=== PATIENT | male | born 1950 | race Caucasian/White ===

== ENCOUNTER 2018-04-29 13:49 | Emergency (ER) | payer MEDICARE, BC ==
[2018-04-29] MEDS ORDERED: Alum Hydrox/Mag Hydrox/Simeth 30 ML, Lidocaine 2% 15 ML PO ONE ×2 (14:05)
--- NOTE | 2018-04-29 14:39 | EDM.PDOC ---
ED HPI GENERAL MEDICAL PROBLEM - General Chief Complaint: Chest Pain Stated Complaint: CHEST PAIN Time Seen by Provider: 04/29/18 13:57 Source of Information: Reports: Patient, Family History Limitations: Reports: No Limitations - History of Present Illness INITIAL COMMENTS - FREE TEXT/NARRATIVE: 67 yo M comes in today with for constant chest pain/tightness x 1 hour with epigastric pain. He has never had anything like this before. The pain does not radiate anywhere else and he denies F/C, diaphoresis, N/V/D, cough, or any other symptoms at this time. He does have a h/o HTN and acid reflux. He states he takes AcipHex at home with relief, but did not take any today. Last endoscopy /colonscopy was "last year". His PCP is Dr. Germain and he went to [facility] for his GI specialist. Chest Pain Score (Numeric/FACES): 6 - Related Data Allergies Allergy/AdvReac Type Severity Reaction Status Date / Time No Known Allergies Allergy Verified 04/29/18 14:01 Home Meds: Home Meds Aspirin [Halfprin] 81 mg PO DAILY 04/29/18 [History] Metoprolol Tartrate 25 mg PO DAILY 04/29/18 [History] Sildenafil [Revatio] 20 mg PO ASDIRECTED 04/29/18 [History] Tamsulosin HCl 0.4 mg PO DAILY 04/29/18 [History] Telmisartan 80 mg PO DAILY 04/29/18 [History] Past Medical History Cardiovascular History: Reports: Hypertension Respiratory History: Reports: Pneumonia, Recurrent, Sleep Apnea Other Respiratory History: wears c-pap Gastrointestinal History: Reports: GERD Musculoskeletal History: Reports: Arthritis, Back Pain, Chronic Oncologic (Cancer) History: Reports: Prostate, Other (See Below) Other Oncologic History: taking organic pills - Past Surgical History HEENT Surgical History: Reports: Naso-Sinus Surgery GI Surgical History: Reports: Colonoscopy, Hernia, Inguinal Musculoskeletal Surgical History: Reports: Other (See Below) Other Musculoskeletal Surgeries/Procedures:: left hip issues and needs a replacement Social & Family History - Tobacco Use Smoking Status *Q: Former Smoker Used Tobacco, but Quit: Yes Month/Year Tobacco Last Used: 13 yrs - Caffeine Use Caffeine Use: Reports: Coffee, Tea - Recreational Drug Use Recreational Drug Use: No ED ROS GENERAL - Review of Systems Review Of Systems: ROS reveals no pertinent complaints other than HPI. ED EXAM, GENERAL - Physical Exam Exam: See Below Exam Limited By: No Limitations General Appearance: Alert, WD/WN, No Apparent Distress Eye Exam: Bilateral Eye: EOMI, Normal Inspection, PERRL Ears: Normal External Exam, Hearing Grossly Normal Nose: Normal Inspection, Normal Mucosa, No Blood Throat/Mouth: Normal Inspection, Normal Lips, Normal Teeth, Normal Gums, Normal Oropharynx, Normal Voice, No Airway Compromise Head: Atraumatic, Normocephalic Neck: Normal Inspection, Supple, Non-Tender, Full Range of Motion Respiratory/Chest: No Respiratory Distress, Lungs Clear, Normal Breath Sounds, No Accessory Muscle Use, Chest Non-Tender Cardiovascular: Normal Peripheral Pulses, Regular Rate, Rhythm, No Edema, No Gallop, No JVD, No Murmur, No Rub Peripheral Pulses: 3+: Posterior Tibial (L), Posterior Tibial (R), Dorsalis Pedis (L), Dorsalis Pedis (R) GI/Abdominal: Normal Bowel Sounds, Soft, Non-Tender, No Organomegaly, No Distention, No Abnormal Bruit, No Mass Psychiatric: Normal Affect, Normal Mood Skin Exam: Warm, Dry, Intact, Normal Color, No Rash EKG INTERPRETATION EKG Date: 04/29/18 Time: 02:08 Rhythm: NSR [place]: LAD-Left [place] Deviation (borderline) P-Wave: Present QRS: Normal ST-T: Normal QT: Normal Course - Vital Signs Last Recorded V/S: Last Vital Signs Temp 97.4 F 04/29/18 15:15 Pulse 68 04/29/18 15:15 Resp 16 04/29/18 15:15 BP 154/93 H 04/29/18 15:15 Pulse Ox 95 04/29/18 15:15 - Orders/Labs/Meds Orders: Active Orders 24 hr Category Date Time Status EKG Documentation Completion [RC] ASDIRECTED Care 04/29/18 14:06 Active EKG 12 Lead [EK] Stat Ther 04/29/18 14:06 Ordered Labs: Laboratory Tests 04/29/18 Range/Units 14:00 Troponin I < 0.017 (0.00-0.056) ng/mL Meds: Medications Discontinued Medications Generic Name Dose Route Start Last Admin Trade Name Freq PRN Reason Stop Dose Admin Al Hydroxide/Mg Hydroxide 30 0 ml 04/29/18 14:05 04/29/18 14:41 ml/ Lidocaine HCl 15 ml PO 04/29/18 14:06 45 ml ONETIME ONE Administration - Re-Assessments/Exams Free Text/Narrative Re-Assessment/Exam: 04/29/18 14:06 Troponin, CXR, EKG ordered GI cocktail ordered 04/29/18 14:38 Troponin <0.[address] Martines and myself- nothing acute seen EKG reviewed by Dr. Martines and myself shows NSR, no ST elevation, Borderline L axis deviation 04/29/18 15:00 Pt is having some relief with the GI Cocktail. At this time, this seems to be acid reflux as the cardiac workup was negative. Departure - Departure Time of Disposition: 15:00 Disposition: Home, Self-Care 01 Condition: Good Clinical Impression: Gastroesophageal reflux disease Instructions: Food Choices for Gastroesophageal Reflux Disease, Adult, Easy-to- Read, Gastroesophageal Reflux Disease, Adult, [id number] Referrals: Darion Morales MD [Primary Care Provider] - Forms: ED Department Discharge Additional Instructions: You were seen in the ED today for mid sternal chest pain/tightness. Your cardiac and pulmonary workup here were negative, no infection or serious emergent condition is suspected at this time. You were given a GI cocktail with some relief. Therefore, it is likely you are suffering from gastric reflux. Recommend taking your AcipHex or trying over the counter Prilosec for relief. Recommend follow up with your primary care provider, Dr. Morales, and/or GI specialist for further workup and treatment. Please return to ED if new or worsening symptoms. - My Orders Last 24 Hours: My Active Orders 04/29/18 14:06 EKG Documentation Completion [RC] ASDIRECTED EKG 12 Lead [EK] Stat - Assessment/Plan Last 24 Hours: My Active Orders 04/29/18 14:06 EKG Documentation Completion [RC] ASDIRECTED EKG 12 Lead [EK] Stat
--- NOTE | 2018-04-29 14:48 | CR ---
Chest: Two views of the chest were obtained. Comparison: Prior chest CT of 05/12/15. Heart size and mediastinum are within normal limits. Lungs are clear with no acute parenchymal change. Slight pleural thickening is noted along the lateral chest wall which appear chronic. Bony structures appear within normal limits for the patient's age. Impression: 1. Stable findings. Nothing acute is seen. Diagnostic code #2
== END 2018-04-29 15:15 | disposition home or self-care (01) ==
LOC: JD.ED 13:49
DX: K21.9 Gastro-esophageal reflux disease without esophagitis (principal); I10 Essential (primary) hypertension; Z79.82 Long term (current) use of aspirin; Z87.891 Personal history of nicotine dependence; Z79.899 Other long term (current) drug therapy
CPT/HCPCS: 36415; 71046; 84484; 93005; 99285; A9270; 93010; 99283

== ENCOUNTER 2018-06-08 06:57 | Inpatient (IN) | payer MEDICARE, BC ==
[~2018-06-08 06:57] MED LIST: Acetaminophen 325 MG Tab PO SCH; Acetaminophen/oxyCODONE 325-5 MG Tab PO PRN; Bisacodyl 5 MG Tab PO PRN; Cyclobenzaprine 10 MG Tab PO PRN; Lactated Ringers 1,000 ML IV SCH; Lidocaine 1%/Sod Bicarbonate in NS 8.4% 1 ML Syringe IDERM PRN; Magnesium Hydroxide 400 MG/5 ML Susp 30 ML Cup PO PRN; Morphine 2 MG/ML Syringe IVPUSH PRN; Naloxone 0.4 MG/ML SDV IVPUSH PRN; Scopolamine 1.5 MG Transdermal Patch TOP ONE; Sennosides 8.6 MG Tab PO PRN; oxyCODONE ER 10 MG TAB.ER PO SCH
[2018-06-08] MEDS ORDERED: Propofol 200 MG/20 ML SDV ONE ×2 (06:58→10:49)
[2018-06-08] MEDS ORDERED: fentaNYL 100 MCG/2 ML SDV ONE (06:59)
[2018-06-08] MEDS ORDERED: Midazolam 1 MG/ML 2 ML SDV ONE ×4 (06:59→10:04)
[2018-06-08] MEDS ORDERED: Pregabalin 25 MG Cap PO ONE (07:00)
[2018-06-08] MEDS ORDERED: Sodium Chloride 0.9% 10 ML Syringe FLUSH PRN (07:00)
[2018-06-08] MEDS ORDERED: Phenylephrine/Normal Saline 100 MCG/ML 10 ML Syringe ONE (07:00)
[2018-06-08] MEDS ORDERED: Morphine PF 10 MG/10 ML SDV ONE (07:05)
[2018-06-08] MEDS ORDERED: Iodine/Sodium Iodide 2% Tincture 30 ML Bottle ONE (07:07)
[2018-06-08] MEDS ORDERED: ceFAZolin 1 GM Vial ONE ×3 (07:07→07:57)
[2018-06-08] MEDS ORDERED: Bupivacaine 0.25% 30 ML SDV ONE (07:07)
[2018-06-08] MEDS ORDERED: Vancomycin 1 GM SDV ONE (07:07)
--- NOTE | 2018-06-08 07:30 | PCM.PREANE ---
Preanesthetic Assessment - Anesthesia/Transfusion/Family Hx Anesthesia History: Prior Anesthesia Reaction Transfusion History: No Prior Transfusion(s) Intubation History: Unknown - Review of Systems General: No Symptoms Pulmonary: Shortness of Breath Cardiovascular: Lightheadedness Gastrointestinal: No Symptoms Neurological: Dizziness Other: Reports: None - Physical Assessment NPO Status Date: 06/07/18 NPO Status Time: 08:30 Pulse: 82 Respiratory Rate: 16 Blood Pressure: 144/86 Temperature: 95.6 C Height: 64.67 m Weight: 104.326 kg ASA Class: 3 Mental Status: Alert & Oriented x3 Airway Class: Mallampati = 3 Dentition: Reports: [place](s) Cardiovascular: Regular Rate - Lab Values: Laboratory Last Values MRSA (PCR) Negative 05/27/18 15:00 - Allergies Allergies/Adverse Reactions: Allergies Allergy/AdvReac Type Severity Reaction Status Date / Time No Known Allergies Allergy Verified 04/29/18 14:01 - Anesthesia Plan Pre-Op Medication Ordered: None Beta Henri[place]: Metoprolol Med Last Dose Date: 06/07/18 Med Last Dose Time: 09:00 - Acknowledgements Anesthesia Type Planned: Spinal Pt an Appropriate Candidate for the Planned Anesthesia: Yes Alternatives and Risks of Anesthesia Discussed w Pt/Guardian: Yes Pt/Guardian Understands and Agrees with Anesthesia Plan: Yes PreAnesthesia Questionnaire HEENT History: Reports: Other (See Below) Other HEENT History: hearing loss, cataract Cardiovascular History: Reports: High Cholesterol, Hypertension Respiratory History: Reports: Pneumonia, Recurrent, Sleep Apnea Other Respiratory History: wears c-pap Gastrointestinal History: Reports: GERD Genitourinary History: Reports: Other (See Below) Other Genitourinary History: nocturia 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 Musculoskeletal History: Reports: Arthritis, Back Pain, Chronic Neurological History: Reports: Vertigo, Other (See Below) Other Neuro History: dizziness, syncope Psychiatric History: Reports: None Endocrine/Metabolic History: Reports: Obesity/BMI 30+ Hematologic History: Reports: None Immunologic History: Reports: None Oncologic (Cancer) History: Reports: Prostate, Other (See Below) Other Oncologic History: taking organic pills Dermatologic History: Reports: None - Past Surgical History Head Surgeries/Procedures: Reports: None HEENT Surgical History: Reports: Naso-Sinus Surgery Respiratory Surgical History: Reports: None GI Surgical History: Reports: Colonoscopy, Hernia, Inguinal Endocrine Surgical History: Reports: None Neurological Surgical History: Reports: None Musculoskeletal Surgical History: Reports: Other (See Below) Other Musculoskeletal Surgeries/Procedures:: left hip issues and needs a replacement Dermatological Surgical History: Reports: None - SUBSTANCE USE Smoking Status *Q: Former Smoker Second Hand Smoke Exposure: No Recreational Drug Use History: No - HOME MEDS Home Medications: Home Meds Metoprolol Tartrate 25 mg PO DAILY 04/29/18 [History] Tamsulosin HCl 0.4 mg PO DAILY 04/29/18 [History] Cholecalciferol (Vitamin D3) [Vitamin D3] 5,000 unit PO DAILY 06/05/18 [History] Telmisartan/Hydrochlorothiazid [Telmisartan-Hctz 80-25 mg Tab] 1 tab PO DAILY [History] - CURRENT (IN HOUSE) MEDS Current Meds: Current Medications Acetaminophen (Tylenol) 975 mg PO ONETIME ELISE Bisacodyl (Dulcolax) 5 mg PO DAILY PRN PRN Reason: Constipation Morphine Sulfate 8 mg/Epinephrine HCl 0.3 mg/Cefuroxime Sodium 750 mg/Ketorolac Tromethamine 30 mg/Sodium Chloride 27.9 ml 0 mg .XX ONETIME ONE Stop: 06/08/18 07:31 Cyclobenzaprine HCl (Flexeril) 10 mg PO TID PRN PRN Reason: Spasms Docusate Sodium (Colace) 100 mg PO BID ELISE Famotidine (Pepcid) 20 mg PO Q12H [facility] Lactated Ringer's (Ringers, Lactated) 1,000 mls @ 125 mls/hr IV ASDIRECTED [facility] Cefazolin Sodium/Dextrose 2 gm (/ Premix) 50 mls @ 100 mls/hr IV Q8H [facility] Stop: 06/08/18 22:59 Ketorolac Tromethamine (Toradol) 15 mg IVPUSH Q6H PRN PRN Reason: Pain Lidocaine/Sodium Bicarbonate (Buffered Lidocaine 1% In Ns 8.4%) 0.25 ml IDERM ONETIME PRN PRN Reason: Prior to IV Start Magnesium Hydroxide (Milk Of Magnesia) 30 ml PO BID PRN PRN Reason: Constipation Morphine Sulfate (Morphine) 2 mg IVPUSH Q2H PRN PRN Reason: Breakthrough Pain Naloxone HCl (Narcan) 0.1 mg IVPUSH Q5M PRN PRN Reason: Oversedation Ondansetron HCl (Zofran) 4 mg IVPUSH Q6H PRN PRN Reason: Nausea/Vomiting Oxycodone HCl (Oxycontin) 10 mg PO ONETIME [facility] Oxycodone/Acetaminophen (Percocet 325-5 Mg) 1 - 2 tab PO Q4H PRN PRN Reason: Pain Pregabalin (Lyrica) 50 mg PO ONETIME ONE Stop: 06/08/18 06:01 Rivaroxaban (Xarelto) 10 mg PO DAILY [facility] Scopolamine (Transderm-Scop) 1.5 mg TOP ONETIME ONE Stop: 06/05/18 11:16 Senna (Senna) 8.6 mg PO BID PRN PRN Reason: Constipation Sodium Chloride (Saline Flush) 10 ml FLUSH ASDIRECTED PRN PRN Reason: Keep Vein Open Discontinued Medications Bupivacaine HCl (Marcaine 0.25%) Confirm Administered Dose 30 ml .ROUTE .STK- MED ONE Stop: 06/08/18 07:08 Cefazolin Sodium (Ancef) Confirm Administered Dose 2 gm .ROUTE .STK-MED ONE Stop: 06/08/18 07:08 Fentanyl (Sublimaze) Confirm Administered Dose 100 mcg .ROUTE .STK-MED ONE Stop: 06/08/18 07:00 Iodine (Iodine 2% Mild Tincture) Confirm Administered Dose 30 ml .ROUTE .STK- MED ONE Stop: 06/08/18 07:08 Midazolam HCl (Versed 1 Mg/Ml) Confirm Administered Dose 2 mg .ROUTE .STK-MED ONE Stop: 06/08/18 07:00 Morphine Sulfate (Duramorph Pf) Confirm Administered Dose 10 mg .ROUTE .STK-MED ONE Stop: 06/08/18 07:06 Phenylephrine HCl (Phenylephrine In Ns 100 Mcg/Ml) Confirm Administered Dose 1 mg .ROUTE .STK-MED ONE Stop: 06/08/18 07:01 Propofol (Diprivan 20 Ml) Confirm Administered Dose 200 mg .ROUTE .STK-MED ONE Stop: 06/08/18 06:59 Tranexamic Acid (Cyklokapron) Confirm Administered Dose 1,000 mg .ROUTE .STK- MED ONE Stop: 06/08/18 07:08 Vancomycin HCl (Vancomycin) Confirm Administered Dose 1 gm .ROUTE .STK-MED ONE Stop: 06/08/18 07:08
--- NOTE | 2018-06-08 07:41 | PCM.SN ---
- Free Text/Narrative Note: lumbar degenerative changes - lumbar surgery-- explained that spinal or if not possible GETA Glidescope available - present
[2018-06-08] MEDS ORDERED: Bupivacaine 0.75% 30 ML SDV ONE (07:47)
[2018-06-08] MEDS ORDERED: Bupivacaine 0.75%/D5W 2 ML Amp ONE (07:51)
--- NOTE | 2018-06-08 08:00 | PCM.CONS ---
H&P History of Present Illness - General Date of Service: 06/08/18 Admit Problem/Dx: Admission Diagnosis/Problem Admission Diagnosis/Problem Osteoarthritis of hip Source of Information: Patient, Old Records, Provider, RN, RN Notes Reviewed History Limitations: Reports: No Limitations - History of Present Illness Initial Comments - Free Text/Narative: Shay Kelly is a 67 yo male patient of Dr. Johnson who is post-operative day 0 of left KAYLA. Hospital medicine was consulted for post-operative medical care. At this time he is resting comfortably in bed. Pain is controlled. He denies any chest pain, shortness of breath, palpitations, nausea, or vomiting. He carries a history of: Hard of hearing, Vertigo, Prostate cancer, ROSARIO with CPAP use, GERD, DM, Obesity, CAD, HLD, HTN, Chronic back pain, Recurrent PNA. He is a former smoker. He is a full code. His primary care provider is Dr. Germain. - Related Data Allergies/Adverse Reactions: Allergies Allergy/AdvReac Type Severity Reaction Status Date / Time No Known Allergies Allergy Verified 06/08/18 13:36 Home Medications: Home Meds Metoprolol Tartrate 25 mg PO DAILY 04/29/18 [History] Tamsulosin HCl 0.4 mg PO DAILY 04/29/18 [History] Cholecalciferol (Vitamin D3) [Vitamin D3] 5,000 unit PO DAILY 06/05/18 [History] Telmisartan/Hydrochlorothiazid [Telmisartan-Hctz 80-25 mg Tab] 1 tab PO DAILY [History] Acetaminophen/oxyCODONE [Percocet 325-5 MG] 1 - 2 tab PO Q4H PRN #60 tablet [Rx] Bisacodyl [Dulcolax] 5 mg PO DAILY PRN tablet 06/08/18 [Rx] Cyclobenzaprine [Flexeril] 10 mg PO TID PRN #40 tablet 06/08/18 [Rx] Docusate Sodium [Colace] 100 mg PO BID cap 06/08/18 [Rx] Rivaroxaban [Xarelto] 10 mg PO DAILY #35 tablet 06/08/18 [Rx] Sennosides [Senna] 8.6 mg PO BID PRN tablet 04/29/19 [Rx] Past Medical History HEENT History: Reports: Other (See Below) Other HEENT History: hearing loss, cataract Cardiovascular History: Reports: High Cholesterol, Hypertension Respiratory History: Reports: Pneumonia, Recurrent, Sleep Apnea Other Respiratory History: wears c-pap Gastrointestinal History: Reports: GERD Genitourinary History: Reports: Other (See Below) Other Genitourinary History: nocturia 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 Musculoskeletal History: Reports: Arthritis, Back Pain, Chronic Neurological History: Reports: Vertigo, Other (See Below) Other Neuro History: dizziness, syncope Psychiatric History: Reports: None Endocrine/Metabolic History: Reports: Obesity/BMI 30+ Hematologic History: Reports: None Immunologic History: Reports: None Oncologic (Cancer) History: Reports: Prostate, Other (See Below) Other Oncologic History: taking organic pills Dermatologic History: Reports: None - Past Surgical History Head Surgeries/Procedures: Reports: None HEENT Surgical History: Reports: Naso-Sinus Surgery Respiratory Surgical History: Reports: None GI Surgical History: Reports: Colonoscopy, Hernia, Inguinal Endocrine Surgical History: Reports: None Neurological Surgical History: Reports: None Musculoskeletal Surgical History: Reports: Other (See Below) Other Musculoskeletal Surgeries/Procedures:: left hip issues and needs a replacement Dermatological Surgical History: Reports: None Social & Family History - Tobacco Use Smoking Status *Q: Former Smoker Used Tobacco, but Quit: Yes Month/Year Tobacco Last Used: 1989 Second Hand Smoke Exposure: No - Caffeine Use Caffeine Use: Reports: Coffee - Recreational Drug Use Recreational Drug Use: No H&P Review of Systems - Review of Systems: Review Of Systems: See Below General: Reports: No Symptoms. Denies: Fever, Chills HEENT: Reports: No Symptoms. Denies: Headaches, Sore Throat Pulmonary: Reports: No Symptoms. Denies: Shortness of Breath, Wheezing, Pleuritic Chest Pain, Cough, Sputum Cardiovascular: Reports: No Symptoms. Denies: Chest Pain, Palpitations, Dyspnea on Exertion, Syncope Gastrointestinal: Reports: No Symptoms. Denies: Abdominal Pain, Constipation, Diarrhea, Nausea, Vomiting Genitourinary: Reports: No Symptoms. Denies: Pain Musculoskeletal: Reports: Leg Pain Skin: Reports: No Symptoms. Denies: Cyanosis Psychiatric: Reports: No Symptoms. Denies: Confusion Neurological: Reports: No Symptoms Hematologic/Lymphatic: Reports: No Symptoms Immunologic: Reports: No Symptoms Exam - Exam Exam: See Below - Vital Signs Vital Signs: Last Vital Signs Temp 204.1 F H 06/08/18 07:37 Pulse 82 06/08/18 07:37 Resp 16 06/08/18 07:37 BP 144/86 H 06/08/18 07:37 Pulse Ox 95 06/08/18 07:15 Weight: 230 lb - Exam Quality Assessment: Supplemental Oxygen, DVT Prophylaxis General: Alert, Oriented, Cooperative. No: Mild Distress HEENT: Conjunctiva Clear, EACs Clear, EOMI, Hearing Intact, Mucosa Moist & [place] , Normal Nasal Septum, Posterior Pharynx Clear, PERRLA Neck: Supple, Trachea Midline Lungs: Clear to Auscultation, Normal Respiratory Effort Cardiovascular: Regular Rate, Regular Rhythm GI/Abdominal Exam: Normal Bowel Sounds, Soft, Non-Tender, No Organomegaly, No Distention (Male) Exam: Deferred Rectal (Males) Exam: Deferred Back Exam: Normal Inspection, Full Range of Motion Extremities: Non-Tender, No Pedal Edema, Normal Capillary Refill, Leg Pain, Limited Range of Motion, Other (Bandage in place on left leg. Bandage is dry and intact. Cooling pack in place. ) Peripheral Pulses: 2+: Radial (L), Radial (R), Dorsalis Pedis (L), Dorsalis Pedis (R) Skin: Warm, Dry, Intact Neurological: Cranial Nerves Intact (grossly ) Neuro Extensive - Mental Status: Alert, Oriented x3, Normal Mood/Affect Consult PN Assessment/Plan POD#: 0 Procedures: Procedures ASSAY OF TROPONIN QUANT (04/30/18) BONE IMAGING (3D) (04/27/18) CT THORAX W/O DYE (05/12/15) CULTURE OTHR SPECIMN AEROBIC (08/18/15) ELECTROCARDIOGRAM TRACING (04/29/18) EMERGENCY DEPT VISIT (04/29/18) MRI ABDOMEN W/O DYE (05/12/15) ROUTINE VENIPUNCTURE (04/29/18) URINE CULTURE/COLONY COUNT (05/03/15) X-RAY EXAM CHEST 2 VIEWS (04/29/18) (1) S/P total hip arthroplasty SNOMED Code(s): 550081208418, 685897280996 Code(s): Z96.649 - PRESENCE OF UNSPECIFIED ARTIFICIAL HIP JOINT Priority: High Current Visit: Yes Qualifiers: Laterality: left Qualified Code(s): Z96.642 - Presence of left artificial hip joint (2) Osteoarthritis SNOMED Code(s): 632068740 Code(s): M19.90 - UNSPECIFIED OSTEOARTHRITIS, UNSPECIFIED SITE Priority: High Current Visit: Yes Qualifiers: Osteoarthritis location: hip Osteoarthritis type: primary Laterality: left Qualified Code(s): M16.12 - Unilateral primary osteoarthritis, left hip (3) ROSARIO on CPAP SNOMED Code(s): 29198507 Code(s): G47.33 - OBSTRUCTIVE SLEEP APNEA (ADULT) (PEDIATRIC); Z99.89 - DEPENDENCE ON OTHER ENABLING MACHINES AND DEVICES Priority: Medium Current Visit: Yes (4) HLD (hyperlipidemia) SNOMED Code(s): 84947555 Code(s): E78.5 - HYPERLIPIDEMIA, UNSPECIFIED Priority: Low Current Visit : No (5) HTN (hypertension) SNOMED Code(s): 74064593 Code(s): I10 - ESSENTIAL (PRIMARY) HYPERTENSION Priority: Medium Current Visit: No Qualifiers: Hypertension type: unspecified Qualified Code(s): I10 - Essential (primary ) hypertension (6) Prostate cancer SNOMED Code(s): 553437964 Code(s): C61 - MALIGNANT NEOPLASM OF PROSTATE Priority: Medium Current Visit: No (7) Diabetes mellitus SNOMED Code(s): 38736341 Code(s): E11.9 - TYPE 2 DIABETES MELLITUS WITHOUT COMPLICATIONS Priority: Medium Current Visit: Yes Qualifiers: Diabetes mellitus type: type 2 Diabetes mellitus jail insulin use: without buttermaker helper use Diabetes mellitus complication status: with unspecified complications Qualified Code(s): E11.8 - Type 2 diabetes mellitus with unspecified complications (8) CAD (coronary artery disease) SNOMED Code(s): 64010015 Code(s): I25.10 - ATHSCL HEART DISEASE OF [place] CORONARY ARTERY W/O ANG PCTRS Priority: Medium Current Visit: No Qualifiers: Coronary Disease-Associated Artery/Lesion type: unspecified vessel or lesion type [place] vs. transplanted heart: unspecified whether [place] or transplanted heart Associated angina: angina presence unspecified Qualified Code(s): I25.10 - Atherosclerotic heart disease of [place] coronary artery without angina pectoris (9) Gastroesophageal reflux disease SNOMED Code(s): 504721865 Code(s): K21.9 - GASTRO-ESOPHAGEAL REFLUX DISEASE WITHOUT ESOPHAGITIS Priority: Medium Current Visit: No Qualifiers: Esophagitis presence: esophagitis presence not specified Qualified Code(s) : K21.9 - Gastro-esophageal reflux disease without esophagitis Problem List Initiated/Reviewed/Updated: Yes Plan: I/P: Acute: S/P left total hip arthroplasty - post-operative day 0 -DVT prophylaxis and pain management per primary care team -PT/OT -IS/RT -Monitor oxygen saturation -Titrate oxygen as needed -Home medications reviewed -Vital signs stable -Monitor labs -Pre-operative Hgb was 15.2 -Pre-operative GFR was 60 -Pre-operative A1C was 6.2% Osteoarthritis of left hip -Pain management per primary care team Chronic: Hard of hearing Vertigo Prostate cancer ROSARIO with CPAP use GERD DM Obesity CAD HLD HTN Chronic back pain Recurrent PNA Plan: CM for discharge planning GI prophylaxis Home medications as indicated Other orders as listed above Routine AM labs He is a full code. His PCP is Dr. Germain Thank you for allowing us to participate in the care of this patient!! Requesting Provider: Dr. Johnson Date Consult Requested: 06/08/18 Reason for Consult: Post-operative medical care Patient History Reviewed: Yes Admission H&P Reviewed: Yes Time Spent (in minutes): 40
[2018-06-08] MEDS: Morphine 8 MG, EPINEPHrine 0.3 MG, Cefuroxime 750 MG, Ketorolac 30 MG, Sodium Chloride ... ONE ×10 (11:13→16:42)
[2018-06-08] MEDS ORDERED: Ondansetron 4 MG/2 ML SDV IVPUSH PRN (11:58)
[2018-06-08] MEDS ORDERED: Lactated Ringers 1,000 ML IV ONE (11:58)
[2018-06-08] MEDS ORDERED: HYDROmorphone 0.5 MG/0.5 ML Syringe IVPUSH PRN (11:58)
[2018-06-08] MEDS ORDERED: ePHEDrine 50 MG/ML SDV IVPUSH PRN (11:58)
--- NOTE | 2018-06-08 11:58 | PCM.POSTAN ---
POST ANESTHESIA ASSESSMENT - VITAL SIGNS Pulse Rate: 88 SaO2: 98 Resp Rate: 16 Blood Pressure: 110/73 Temperature: 97.6 C - RESPIRATORY Respiratory Status: Respiratory Rate WNL, Airway Patent, O2 Saturation Stable, Supplemental Oxygen - CARDIOVASCULAR CV Status: Pulse Rate WNL, Blood Pressure Stable - GASTROINTESTINAL GI Status: No Symptoms - POST OP HYDRATION Hydration Status: Adequate & Stable
--- NOTE | 2018-06-08 13:13 | CR ---
Pelvis and left hip: AP view of the pelvis was obtained as well as lateral view of the left hip. Comparison: No prior pelvis or hip exam. Left hip prosthesis is seen. Components are aligned. Underlying bony structures are intact. Soft tissue air is noted around the left hip compatible with the surgical procedure. Mild superior joint space narrowing is seen within the right hip. Slight degenerative change is noted within the right sacroiliac joint. Impression: 1. Recently placed left hip prosthesis which appears within normal limits. 2. Slight degenerative change as noted above. Diagnostic code #2
[2018-06-08] MEDS: ceFAZolin 2 GM in Premix Bag 1 BAG IV SCH ×2 (15:00→22:18)
[2018-06-08] MEDS: Famotidine 20 MG Tab PO SCH ×2 (16:42→17:37)
[2018-06-08] MEDS: Ondansetron 4 MG/2 ML SDV IVPUSH PRN ×2 (17:49→21:35)
[2018-06-08] MEDS ORDERED: Sodium Chloride 0.9% 1,000 ML IV ONE (18:15)
[2018-06-08] MEDS ORDERED: Scopolamine 1.5 MG Transdermal Patch TRDERM PRN (18:52)
[2018-06-08] MEDS: Sodium Chloride 0.9% 1,000 ML IV SCH (19:04)
[2018-06-08] MEDS: Docusate Sodium 100 MG Cap PO SCH (20:16)
[2018-06-08] MEDS: Ketorolac 15 MG/ML SDV IVPUSH PRN (20:35)
[2018-06-09] MEDS: Sodium Chloride 0.9% 1,000 ML IV SCH (04:19)
[2018-06-09] MEDS: Famotidine 20 MG Tab PO SCH (06:00)
[2018-06-09] MEDS: ceFAZolin 2 GM in Premix Bag 1 BAG IV SCH (06:00)
--- NOTE | 2018-06-09 06:33 | PCM.CONSN ---
- General Info Date of Service: 06/09/18 Admission Dx/Problem (Free Text): Admission Diagnosis/Problem Admission Diagnosis/Problem Osteoarthritis of hip Functional Status: Reports: Pain Controlled, Tolerating Diet, Ambulating, Urinating, Incentive Spirometry. Denies: New Symptoms - Review of Systems General: Reports: No Symptoms. Denies: Fever, Weakness, Fatigue, Malaise, Chills HEENT: Reports: No Symptoms. Denies: Headaches, Sore Throat Pulmonary: Reports: No Symptoms. Denies: Shortness of Breath, Pleuritic Chest Pain, Cough, Sputum, Wheezing Cardiovascular: Reports: No Symptoms. Denies: Chest Pain, Palpitations, Dyspnea on Exertion, Edema Gastrointestinal: Reports: No Symptoms. Denies: Abdominal Pain, Constipation, Diarrhea, Nausea, Vomiting Genitourinary: Reports: Retention (chronic). Denies: Pain Musculoskeletal: Reports: Leg Pain Skin: Reports: No Symptoms. Denies: Cyanosis Neurological: Reports: No Symptoms. Denies: Confusion Psychiatric: Reports: No Symptoms - Patient Data Vitals - Most Recent: Last Vital Signs Temp 98.2 F 06/09/18 03:13 Pulse 86 06/09/18 03:13 Resp 16 06/09/18 03:13 BP 134/82 06/09/18 03:13 Pulse Ox 94 L 06/09/18 03:13 Weight - Most Recent: 230 lb I&O - Last 24 Hours: Intake & Output 06/08/18 06/08/18 06/09/18 14:59 22:59 06:59 Intake Total 117 724 8330 Output Total 275 475 350 Balance 035 602 9169 Med Orders - Current: Current Medications Bisacodyl (Dulcolax) 5 mg PO DAILY PRN PRN Reason: Constipation Cholecalciferol (Vitamin D3) 5,000 unit PO DAILY [facility] Cyclobenzaprine HCl (Flexeril) 10 mg PO TID PRN PRN Reason: Spasms Docusate Sodium (Colace) 100 mg PO BID [facility] Last Admin: 06/08/18 20:16 Dose: 100 mg Famotidine (Pepcid) 20 mg PO Q12H [facility] Last Admin: 06/09/18 06:00 Dose: 20 mg Hydrochlorothiazide (Hydrochlorothiazide) 25 mg PO DAILY [facility] Cefazolin Sodium/Dextrose 2 gm (/ Premix) 50 mls @ 100 mls/hr IV Q8H [facility] Stop: 06/09/18 07:29 Last Admin: 06/09/18 06:00 Dose: 100 mls/hr Sodium Chloride (Normal Saline) 1,000 mls @ 50 mls/hr IV ASDIRECTED [facility] Last Admin: 06/09/18 04:19 Dose: 50 mls/hr Ketorolac Tromethamine (Toradol) 15 mg IVPUSH Q6H PRN PRN Reason: Pain Last Admin: 06/08/18 20:35 Dose: 15 mg Losartan Potassium (Cozaar) 100 mg PO DAILY [facility] Magnesium Hydroxide (Milk Of Magnesia) 30 ml PO BID PRN PRN Reason: Constipation Metoprolol Tartrate (Lopressor) 25 mg PO DAILY [facility] Morphine Sulfate (Morphine) 2 mg IVPUSH Q2H PRN PRN Reason: Breakthrough Pain Naloxone HCl (Narcan) 0.1 mg IVPUSH Q5M PRN PRN Reason: Oversedation Ondansetron HCl (Zofran) 4 mg IVPUSH Q6H PRN PRN Reason: Nausea/Vomiting Last Admin: 06/08/18 21:35 Dose: 4 mg Oxycodone/Acetaminophen (Percocet 325-5 Mg) 1 - 2 tab PO Q4H PRN PRN Reason: Pain Last Admin: 06/08/18 15:00 Dose: 2 tab Rivaroxaban (Xarelto) 10 mg PO DAILY [facility] Scopolamine (Transderm-Scop) 1.5 mg TRDERM Q72H PRN PRN Reason: Nausea Last Admin: 06/08/18 19:04 Dose: 1.5 mg Senna (Senna) 8.6 mg PO BID PRN PRN Reason: Constipation Tamsulosin HCl (Flomax) 0.4 mg PO DAILY [facility] Discontinued Medications Acetaminophen (Tylenol) 975 mg PO ONETIME [facility] Last Admin: 06/08/18 07:38 Dose: 975 mg Bupivacaine HCl (Marcaine 0.25%) Confirm Administered Dose 30 ml .ROUTE .STK- MED ONE Stop: 06/08/18 07:08 Last Admin: 06/08/18 11:14 Dose: 30 ml Bupivacaine HCl (Sensorcaine-Mpf 0.75%) Confirm Administered Dose 30 ml .ROUTE .STK-MED ONE Stop: 06/08/18 07:48 Bupivacaine HCl/Dextrose (Marcaine 0.75% Spinal) Confirm Administered Dose 2 ml .ROUTE .STK-MED ONE Stop: 06/08/18 07:52 Cefazolin Sodium (Ancef) Confirm Administered Dose 2 gm .ROUTE .STK-MED ONE Stop: 06/08/18 07:08 Cefazolin Sodium (Ancef) Confirm Administered Dose 1 gm .ROUTE .STK-MED ONE Stop: 06/08/18 07:58 Last Admin: 06/08/18 11:09 Dose: 2 gm Cefazolin Sodium (Ancef) Confirm Administered Dose 1 gm .ROUTE .STK-MED ONE Stop: 06/08/18 07:58 Morphine Sulfate 8 mg/Epinephrine HCl 0.3 mg/Cefuroxime Sodium 750 mg/Ketorolac Tromethamine 30 mg/Sodium Chloride 27.9 ml 0 mg .XX ONETIME ONE Stop: 06/08/18 07:31 Last Admin: 06/08/18 16:42 Dose: Not Given Ephedrine Sulfate (Ephedrine Sulfate) 5 mg IVPUSH ONETIME PRN PRN Reason: Hypotension Stop: 06/08/18 18:00 Fentanyl (Sublimaze) Confirm Administered Dose 100 mcg .ROUTE .STK-MED ONE Stop: 06/08/18 07:00 Hydromorphone HCl (Dilaudid) 0.5 mg IVPUSH Q15M PRN PRN Reason: Pain (severe 7-10) Stop: 06/08/18 18:00 Lactated Ringer's (Ringers, Lactated) 1,000 mls @ 125 mls/hr IV ASDIRECTED [facility] Stop: 06/08/18 23:00 Last Admin: 06/08/18 07:15 Dose: 125 mls/hr Lactated Ringer's (Ringers, Lactated) 1,000 mls @ 150 mls/hr IV .BOLUS ONE Stop: 06/08/18 18:37 Last Admin: 06/08/18 16:43 Dose: Not Given Sodium Chloride (Normal Saline) 500 mls @ 1,000 mls/hr IV ONETIME ONE Stop: 06/08/18 18:44 Last Admin: 06/08/18 19:46 Dose: Not Given Iodine (Iodine 2% Mild Tincture) Confirm Administered Dose 30 ml .ROUTE .STK- MED ONE Stop: 06/08/18 07:08 Last Admin: 06/08/18 11:06 Dose: 18 ml Lidocaine/Sodium Bicarbonate (Buffered Lidocaine 1% In Ns 8.4%) 0.25 ml IDERM ONETIME PRN PRN Reason: Prior to IV Start Stop: 06/08/18 23:00 Last Admin: 06/08/18 07:15 Dose: 0.25 ml Midazolam HCl (Versed 1 Mg/Ml) Confirm Administered Dose 2 mg .ROUTE .STK-MED ONE Stop: 06/08/18 07:00 Midazolam HCl (Versed 1 Mg/Ml) Confirm Administered Dose 2 mg .ROUTE .STK-MED ONE Stop: 06/08/18 09:34 Midazolam HCl (Versed 1 Mg/Ml) Confirm Administered Dose 2 mg .ROUTE .STK-MED ONE Stop: 06/08/18 09:44 Midazolam HCl (Versed 1 Mg/Ml) Confirm Administered Dose 2 mg .ROUTE .STK-MED ONE Stop: 06/08/18 10:05 Morphine Sulfate (Duramorph Pf) Confirm Administered Dose 10 mg .ROUTE .STK-MED ONE Stop: 06/08/18 07:06 Ondansetron HCl (Zofran) 4 mg IVPUSH ONETIME PRN PRN Reason: Nausea/Vomiting Stop: 06/08/18 18:00 Oxycodone HCl (Oxycontin) 10 mg PO ONETIME [facility] Last Admin: 06/08/18 07:38 Dose: 10 mg Phenylephrine HCl (Phenylephrine In Ns 100 Mcg/Ml) Confirm Administered Dose 1 mg .ROUTE .STK-MED ONE Stop: 06/08/18 07:01 Pregabalin (Lyrica) 50 mg PO ONETIME ONE Stop: 06/08/18 07:01 Last Admin: 06/08/18 07:38 Dose: 50 mg Propofol (Diprivan 20 Ml) Confirm Administered Dose 200 mg .ROUTE .STK-MED ONE Stop: 06/08/18 06:59 Propofol (Diprivan 20 Ml) Confirm Administered Dose 200 mg .ROUTE .STK-MED ONE Stop: 06/08/18 10:50 Scopolamine (Transderm-Scop) 1.5 mg TOP ONETIME ONE Stop: 06/05/18 11:16 Sodium Chloride (Saline Flush) 10 ml FLUSH ASDIRECTED PRN PRN Reason: Keep Vein Open Stop: 06/08/18 23:00 Tranexamic Acid (Cyklokapron) Confirm Administered Dose 1,000 mg .ROUTE .STK- MED ONE Stop: 06/08/18 07:08 Last Admin: 06/08/18 11:18 Dose: 1,000 mg Vancomycin HCl (Vancomycin) Confirm Administered Dose 1 gm .ROUTE .STK-MED ONE Stop: 06/08/18 07:08 Last Admin: 06/08/18 11:15 Dose: 1 gm - Exam Quality Assessment: DVT Prophylaxis General: Alert, Oriented, Cooperative, No Acute Distress HEENT: Pupils Equal, Pupils Reactive, EOMI, Mucous Membr. Moist/[place] Neck: Supple, Trachea Midline Lungs: Clear to Auscultation, Normal Respiratory Effort Cardiovascular: Regular Rate, Regular Rhythm GI/Abdominal Exam: Normal Bowel Sounds, Soft, Non-Tender, No Organomegaly, No Distention (Male) Exam: Deferred Back Exam: Normal Inspection, Full Range of Motion Extremities: No Pedal Edema, Normal Capillary Refill, Leg Pain, Limited Range of Motion, Other (Bandage in place on left leg. Cooling pack in place. ) Peripheral Pulses: 2+: Radial (L), Radial (R), Dorsalis Pedis (L), Dorsalis Pedis (R) Skin: Warm, Dry, Intact Wound/Incisions: Dressing Dry and Intact, No Drainage Neurological: No New Focal Deficit Psy/Mental Status: Alert, Normal Affect, Normal Mood Consult PN Assessment/Plan POD#: 1 Procedures: Procedures ASSAY OF TROPONIN QUANT (04/30/18) BONE IMAGING (3D) (04/27/18) CT THORAX W/O DYE (05/12/15) CULTURE OTHR SPECIMN AEROBIC (08/18/15) ELECTROCARDIOGRAM TRACING (04/29/18) EMERGENCY DEPT VISIT (04/29/18) MRI ABDOMEN W/O DYE (05/12/15) ROUTINE VENIPUNCTURE (04/29/18) URINE CULTURE/COLONY COUNT (05/03/15) X-RAY EXAM CHEST 2 VIEWS (04/29/18) (1) S/P total hip arthroplasty SNOMED Code(s): 295888784765, 738074585376 Code(s): Z96.649 - PRESENCE OF UNSPECIFIED ARTIFICIAL HIP JOINT Priority: High Current Visit: Yes Qualifiers: Laterality: left Qualified Code(s): Z96.642 - Presence of left artificial hip joint (2) Osteoarthritis SNOMED Code(s): 060891908 Code(s): M19.90 - UNSPECIFIED OSTEOARTHRITIS, UNSPECIFIED SITE Priority: High Current Visit: Yes Qualifiers: Osteoarthritis location: hip Osteoarthritis type: primary Laterality: left Qualified Code(s): M16.12 - Unilateral primary osteoarthritis, left hip (3) ROSARIO on CPAP SNOMED Code(s): 13791582 Code(s): G47.33 - OBSTRUCTIVE SLEEP APNEA (ADULT) (PEDIATRIC); Z99.89 - DEPENDENCE ON OTHER ENABLING MACHINES AND DEVICES Priority: Medium Current Visit: Yes (4) HLD (hyperlipidemia) SNOMED Code(s): 00477065 Code(s): E78.5 - HYPERLIPIDEMIA, UNSPECIFIED Priority: Low Current Visit : No (5) HTN (hypertension) SNOMED Code(s): 14016935 Code(s): I10 - ESSENTIAL (PRIMARY) HYPERTENSION Priority: Medium Current Visit: No Qualifiers: Hypertension type: unspecified Qualified Code(s): I10 - Essential (primary ) hypertension (6) Prostate cancer SNOMED Code(s): 940182744 Code(s): C61 - MALIGNANT NEOPLASM OF PROSTATE Priority: Medium Current Visit: No (7) Diabetes mellitus SNOMED Code(s): 29468971 Code(s): E11.9 - TYPE 2 DIABETES MELLITUS WITHOUT COMPLICATIONS Priority: Medium Current Visit: Yes Qualifiers: Diabetes mellitus type: type 2 Diabetes mellitus exterminator insulin use: without alf use Diabetes mellitus complication status: with unspecified complications Qualified Code(s): E11.8 - Type 2 diabetes mellitus with unspecified complications (8) CAD (coronary artery disease) SNOMED Code(s): 80464944 Code(s): I25.10 - ATHSCL HEART DISEASE OF [place] CORONARY ARTERY W/O ANG PCTRS Priority: Medium Current Visit: No Qualifiers: Coronary Disease-Associated Artery/Lesion type: unspecified vessel or lesion type [place] vs. transplanted heart: unspecified whether [place] or transplanted heart Associated angina: angina presence unspecified Qualified Code(s): I25.10 - Atherosclerotic heart disease of [place] coronary artery without angina pectoris (9) Gastroesophageal reflux disease SNOMED Code(s): 602508795 Code(s): K21.9 - GASTRO-ESOPHAGEAL REFLUX DISEASE WITHOUT ESOPHAGITIS Priority: Medium Current Visit: No Qualifiers: Esophagitis presence: esophagitis presence not specified Qualified Code(s) : K21.9 - Gastro-esophageal reflux disease without esophagitis Problem List Initiated/Reviewed/Updated: Yes Plan: I/P: Acute: S/P left total hip arthroplasty - post-operative day 1 -DVT prophylaxis and pain management per primary care team -PT/OT -IS/RT -Monitor oxygen saturation -Titrate oxygen as needed -Home medications reviewed -Vital signs stable -Monitor labs -Pre-operative Hgb was 15.2; Now 12.3 -Pre-operative GFR was 60; Now >60 -Pre-operative A1C was 6.2% Osteoarthritis of left hip -Pain management per primary care team Chronic: Hard of hearing Vertigo Prostate cancer ROSARIO with CPAP use GERD DM Obesity CAD HLD HTN Chronic back pain Recurrent PNA Plan: CM for discharge planning GI prophylaxis Home medications as indicated Other orders as listed above Routine AM labs He is a full code. His PCP is Dr. Germain Overall from hospitalist standpoint Brandt is doing well. He has been up walking with therapies. He is off oxygen. He did request his Reeves catheter remain in overnight as he reports he has frequent urinary retention secondary to prostate cancer. He reports he will occasionally self catheterize at home if he has difficulty with urinary retention. We discussed this for his discharge and he reports he has no concerns and he will just keep catheterizing as needed. His pain is controlled. Labs and vital signs today look good. He is clear for discharge pending primary team and PT/OT agreement. Thank you for allowing us to participate in the care of this patient!!
--- NOTE | 2018-06-09 07:56 | PCM.SURGPN ---
- General Info Date of Service: 06/09/18 POD#: 1 Functional Status: Reports: Pain Controlled, Tolerating Diet, Ambulating, Urinating, Incentive Spirometry, Other (The pt noted nausea yesterday. Some improvement noted today. The pt was able to eat breakfast.) - Patient Data Vitals - Most Recent: Last Vital Signs Temp 98.2 F 06/09/18 03:13 Pulse 86 06/09/18 03:13 Resp 16 06/09/18 03:13 BP 134/82 06/09/18 03:13 Pulse Ox 94 L 06/09/18 03:13 Weight - Most Recent: 230 lb I&O - Last 24 Hours: Intake & Output 06/08/18 06/09/18 06/09/18 22:59 06:59 14:59 Intake Total 650 2440 Output Total 475 350 Balance 175 2090 Lab Results Last 24 Hrs: Laboratory Results - last 24 hr 06/09/18 06/09/18 Range/Units 06:05 06:05 WBC 9.57 H (4.23-9.07) K/mm3 RBC 4.29 L (4.63-6.08) M/mm3 Hgb 12.3 L (13.7-17.5) gm/L Hct 39.3 L (40.1-51.0) % MCV 91.6 (79.0-92.2) fl MCH 28.7 (25.7-32.2) pg MCHC 31.3 L (32.2-35.5) g/dl RDW Std Deviation 48.4 H (35.1-43.9) fL Plt Count 183 (163-337) K/mm3 MPV 11.0 (9.4-12.3) fl Sodium 140 (136-145) mEq/L Potassium 4.4 (3.5-5.1) mEq/L Chloride 105 (98-107) mEq/L Carbon Dioxide 28 (21-32) mEq/L Anion Gap 11.4 (5-15) BUN 22 H (7-18) mg/dL Creatinine 1.2 (0.7-1.3) mg/dL Est Cr Clr Drug Dosing 85.73 mL/min Estimated GFR (MDRD) > 60 (>60) mL/min BUN/Creatinine Ratio 18.3 H (14-18) Glucose 95 (80-115) mg/dL Calcium 8.4 L (8.5-10.1) mg/dL Total Bilirubin 0.6 (0.2-1.0) mg/dL AST 30 (15-37) U/L ALT 26 (16-63) U/L Alkaline Phosphatase 68 (46-116) U/L Total Protein 6.0 L (6.4-8.2) g/dl Albumin 2.9 L (3.4-5.0) g/dl Globulin 3.1 gm/dL Albumin/Globulin Ratio 0.9 L (1-2) Med Orders - Current: Current Medications Bisacodyl (Dulcolax) 5 mg PO DAILY PRN PRN Reason: Constipation Cholecalciferol (Vitamin D3) 5,000 unit PO DAILY [facility] Cyclobenzaprine HCl (Flexeril) 10 mg PO TID PRN PRN Reason: Spasms Docusate Sodium (Colace) 100 mg PO BID [facility] Last Admin: 06/08/18 20:16 Dose: 100 mg Famotidine (Pepcid) 20 mg PO Q12H [facility] Last Admin: 06/09/18 06:00 Dose: 20 mg Hydrochlorothiazide (Hydrochlorothiazide) 25 mg PO DAILY [facility] Sodium Chloride (Normal Saline) 1,000 mls @ 50 mls/hr IV ASDIRECTED [facility] Last Admin: 06/09/18 04:19 Dose: 50 mls/hr Ketorolac Tromethamine (Toradol) 15 mg IVPUSH Q6H PRN PRN Reason: Pain Last Admin: 06/08/18 20:35 Dose: 15 mg Losartan Potassium (Cozaar) 100 mg PO DAILY [facility] Magnesium Hydroxide (Milk Of Magnesia) 30 ml PO BID PRN PRN Reason: Constipation Metoprolol Tartrate (Lopressor) 25 mg PO DAILY [facility] Morphine Sulfate (Morphine) 2 mg IVPUSH Q2H PRN PRN Reason: Breakthrough Pain Naloxone HCl (Narcan) 0.1 mg IVPUSH Q5M PRN PRN Reason: Oversedation Ondansetron HCl (Zofran) 4 mg IVPUSH Q6H PRN PRN Reason: Nausea/Vomiting Last Admin: 06/08/18 21:35 Dose: 4 mg Oxycodone/Acetaminophen (Percocet 325-5 Mg) 1 - 2 tab PO Q4H PRN PRN Reason: Pain Last Admin: 06/08/18 15:00 Dose: 2 tab Rivaroxaban (Xarelto) 10 mg PO DAILY [facility] Scopolamine (Transderm-Scop) 1.5 mg TRDERM Q72H PRN PRN Reason: Nausea Last Admin: 06/08/18 19:04 Dose: 1.5 mg Senna (Senna) 8.6 mg PO BID PRN PRN Reason: Constipation Tamsulosin HCl (Flomax) 0.4 mg PO DAILY [facility] Discontinued Medications Acetaminophen (Tylenol) 975 mg PO ONETIME [facility] Last Admin: 06/08/18 07:38 Dose: 975 mg Bupivacaine HCl (Marcaine 0.25%) Confirm Administered Dose 30 ml .ROUTE .STK- MED ONE Stop: 06/08/18 07:08 Last Admin: 06/08/18 11:14 Dose: 30 ml Bupivacaine HCl (Sensorcaine-Mpf 0.75%) Confirm Administered Dose 30 ml .ROUTE .STK-MED ONE Stop: 06/08/18 07:48 Bupivacaine HCl/Dextrose (Marcaine 0.75% Spinal) Confirm Administered Dose 2 ml .ROUTE .STK-MED ONE Stop: 06/08/18 07:52 Cefazolin Sodium (Ancef) Confirm Administered Dose 2 gm .ROUTE .STK-MED ONE Stop: 06/08/18 07:08 Cefazolin Sodium (Ancef) Confirm Administered Dose 1 gm .ROUTE .STK-MED ONE Stop: 06/08/18 07:58 Last Admin: 06/08/18 11:09 Dose: 2 gm Cefazolin Sodium (Ancef) Confirm Administered Dose 1 gm .ROUTE .STK-MED ONE Stop: 06/08/18 07:58 Morphine Sulfate 8 mg/Epinephrine HCl 0.3 mg/Cefuroxime Sodium 750 mg/Ketorolac Tromethamine 30 mg/Sodium Chloride 27.9 ml 0 mg .XX ONETIME ONE Stop: 06/08/18 07:31 Last Admin: 06/08/18 16:42 Dose: Not Given Ephedrine Sulfate (Ephedrine Sulfate) 5 mg IVPUSH ONETIME PRN PRN Reason: Hypotension Stop: 06/08/18 18:00 Fentanyl (Sublimaze) Confirm Administered Dose 100 mcg .ROUTE .STK-MED ONE Stop: 06/08/18 07:00 Hydromorphone HCl (Dilaudid) 0.5 mg IVPUSH Q15M PRN PRN Reason: Pain (severe 7-10) Stop: 06/08/18 18:00 Lactated Ringer's (Ringers, Lactated) 1,000 mls @ 125 mls/hr IV ASDIRECTED [facility] Stop: 06/08/18 23:00 Last Admin: 06/08/18 07:15 Dose: 125 mls/hr Cefazolin Sodium/Dextrose 2 gm (/ Premix) 50 mls @ 100 mls/hr IV Q8H [facility] Stop: 06/09/18 07:29 Last Admin: 06/09/18 06:00 Dose: 100 mls/hr Lactated Ringer's (Ringers, Lactated) 1,000 mls @ 150 mls/hr IV .BOLUS ONE Stop: 06/08/18 18:37 Last Admin: 06/08/18 16:43 Dose: Not Given Sodium Chloride (Normal Saline) 500 mls @ 1,000 mls/hr IV ONETIME ONE Stop: 06/08/18 18:44 Last Admin: 06/08/18 19:46 Dose: Not Given Iodine (Iodine 2% Mild Tincture) Confirm Administered Dose 30 ml .ROUTE .STK- MED ONE Stop: 06/08/18 07:08 Last Admin: 06/08/18 11:06 Dose: 18 ml Lidocaine/Sodium Bicarbonate (Buffered Lidocaine 1% In Ns 8.4%) 0.25 ml IDERM ONETIME PRN PRN Reason: Prior to IV Start Stop: 06/08/18 23:00 Last Admin: 06/08/18 07:15 Dose: 0.25 ml Midazolam HCl (Versed 1 Mg/Ml) Confirm Administered Dose 2 mg .ROUTE .STK-MED ONE Stop: 06/08/18 07:00 Midazolam HCl (Versed 1 Mg/Ml) Confirm Administered Dose 2 mg .ROUTE .STK-MED ONE Stop: 06/08/18 09:34 Midazolam HCl (Versed 1 Mg/Ml) Confirm Administered Dose 2 mg .ROUTE .STK-MED ONE Stop: 06/08/18 09:44 Midazolam HCl (Versed 1 Mg/Ml) Confirm Administered Dose 2 mg .ROUTE .STK-MED ONE Stop: 06/08/18 10:05 Morphine Sulfate (Duramorph Pf) Confirm Administered Dose 10 mg .ROUTE .STK-MED ONE Stop: 06/08/18 07:06 Ondansetron HCl (Zofran) 4 mg IVPUSH ONETIME PRN PRN Reason: Nausea/Vomiting Stop: 06/08/18 18:00 Oxycodone HCl (Oxycontin) 10 mg PO ONETIME [facility] Last Admin: 06/08/18 07:38 Dose: 10 mg Phenylephrine HCl (Phenylephrine In Ns 100 Mcg/Ml) Confirm Administered Dose 1 mg .ROUTE .STK-MED ONE Stop: 06/08/18 07:01 Pregabalin (Lyrica) 50 mg PO ONETIME ONE Stop: 06/08/18 07:01 Last Admin: 06/08/18 07:38 Dose: 50 mg Propofol (Diprivan 20 Ml) Confirm Administered Dose 200 mg .ROUTE .STK-MED ONE Stop: 06/08/18 06:59 Propofol (Diprivan 20 Ml) Confirm Administered Dose 200 mg .ROUTE .STK-MED ONE Stop: 06/08/18 10:50 Scopolamine (Transderm-Scop) 1.5 mg TOP ONETIME ONE Stop: 06/05/18 11:16 Sodium Chloride (Saline Flush) 10 ml FLUSH ASDIRECTED PRN PRN Reason: Keep Vein Open Stop: 06/08/18 23:00 Tranexamic Acid (Cyklokapron) Confirm Administered Dose 1,000 mg .ROUTE .STK- MED ONE Stop: 06/08/18 07:08 Last Admin: 06/08/18 11:18 Dose: 1,000 mg Vancomycin HCl (Vancomycin) Confirm Administered Dose 1 gm .ROUTE .STK-MED ONE Stop: 06/08/18 07:08 Last Admin: 06/08/18 11:15 Dose: 1 gm - Exam Wound/Incisions: Dressing Dry and Intact General: Alert, Cooperative, No Acute Distress Lungs: Normal Respiratory Effort Extremities: Other (NVS intact for LLE. Kimo's negative for LLE. Left thigh soft.) - Problem List Review Problem List Initiated/Reviewed/Updated: Yes - My Orders Last 24 Hours: Active Orders 24 hr Category Date Time Status Ready for Discharge [RC] PER UNIT ROUTINE Care 06/09/18 07:53 Ordered Remove Reeves Catheter [Urinary Catheter Removal] [RC] Care 06/09/18 07:54 Ordered Per Unit Routine [employer] Diet [DIET] Diet 06/08/18 Lunch Active Cholecalciferol (Vitamin D3) [Vitamin D3] Med 06/09/18 09:00 Active 5,000 unit PO DAILY Docusate Sodium [Colace] Med 06/08/18 21:00 Active 100 mg PO BID Losartan [Cozaar] Med 06/09/18 09:00 Active 100 mg PO DAILY Metoprolol Tartrate [Lopressor] Med 06/09/18 09:00 Active 25 mg PO DAILY Ondansetron [Zofran] Med 06/08/18 07:00 Active 4 mg IVPUSH Q6H PRN Rivaroxaban [Xarelto] Med 06/09/18 09:00 Active 10 mg PO DAILY Scopolamine [Transderm-Scop] Med 06/08/18 18:52 Active 1.5 mg TRDERM Q72H PRN Sodium Chloride 0.9% [Normal Saline] 1,000 ml Med 06/08/18 18:15 Active IV ASDIRECTED Tamsulosin [Flomax] Med 06/09/18 09:00 Active 0.4 mg PO DAILY hydroCHLOROthiazide Med 06/09/18 09:00 Active 25 mg PO DAILY Medication Orders Bisacodyl (Dulcolax) 5 mg PO DAILY PRN PRN Reason: Constipation Cholecalciferol (Vitamin D3) 5,000 unit PO DAILY [facility] Cyclobenzaprine HCl (Flexeril) 10 mg PO TID PRN PRN Reason: Spasms Docusate Sodium (Colace) 100 mg PO BID [facility] Last Admin: 06/08/18 20:16 Dose: 100 mg Famotidine (Pepcid) 20 mg PO Q12H [facility] Last Admin: 06/09/18 06:00 Dose: 20 mg Admin: 06/08/18 17:37 Dose: 20 mg Admin: 06/08/18 16:42 Dose: Hydrochlorothiazide (Hydrochlorothiazide) 25 mg PO DAILY [facility] Sodium Chloride (Normal Saline) 1,000 mls @ 50 mls/hr IV ASDIRECTED [facility] Last Admin: 06/09/18 04:19 Dose: 50 mls/hr Infusion: 06/09/18 04:19 Dose: 50 mls/hr Admin: 06/08/18 19:04 Dose: 50 mls/hr Ketorolac Tromethamine (Toradol) 15 mg IVPUSH Q6H PRN PRN Reason: Pain Last Admin: 06/08/18 20:35 Dose: 15 mg Losartan Potassium (Cozaar) 100 mg PO DAILY [facility] Magnesium Hydroxide (Milk Of Magnesia) 30 ml PO BID PRN PRN Reason: Constipation Metoprolol Tartrate (Lopressor) 25 mg PO DAILY [facility] Morphine Sulfate (Morphine) 2 mg IVPUSH Q2H PRN PRN Reason: Breakthrough Pain Naloxone HCl (Narcan) 0.1 mg IVPUSH Q5M PRN PRN Reason: Oversedation Ondansetron HCl (Zofran) 4 mg IVPUSH Q6H PRN PRN Reason: Nausea/Vomiting Last Admin: 06/08/18 21:35 Dose: 4 mg Admin: 06/08/18 17:49 Dose: 4 mg Oxycodone/Acetaminophen (Percocet 325-5 Mg) 1 - 2 tab PO Q4H PRN PRN Reason: Pain Last Admin: 06/08/18 15:00 Dose: 2 tab Rivaroxaban (Xarelto) 10 mg PO DAILY [facility] Scopolamine (Transderm-Scop) 1.5 mg TRDERM Q72H PRN PRN Reason: Nausea Last Admin: 06/08/18 19:04 Dose: 1.5 mg Senna (Senna) 8.6 mg PO BID PRN PRN Reason: Constipation Tamsulosin HCl (Flomax) 0.4 mg PO DAILY [facility] - Assessment Assessment (Free Text/Narrative):: POD#1 - left KAYLA - Plan Plan (Free Text/Narrative):: 1. Hgb 12.3. 2. Discharge to home today if inpt therapy goals met. 3. Xarelto for VTE prophylaxis. 4. Outpatient P.T. The pt's case was discussed with Dr. Johnson.
--- NOTE | 2018-06-09 08:03 | PCM48HPAN ---
Post Anesthesia Note - EVALUATION WITHIN 48HRS OF ANESTHETIC Vital Signs in Normal Range: Yes Patient Participated in Evaluation: Yes Respiratory Function Stable: Yes Airway Patent: Yes Cardiovascular Function Stable: Yes Hydration Status Stable: Yes Pain Control Satisfactory: Yes (not much pain now) Nausea and Vomiting Control Satisfactory: Yes (nausea and vomiting yesterday- sitting up in chair) Mental Status Recovered: Yes Pulse Rate: 86 Resp Rate: 16 Temperature: 98.2 F Blood Pressure: 134/82
[2018-06-09] MEDS: Ketorolac 15 MG/ML SDV IVPUSH PRN (08:52)
[2018-06-09] MEDS: Docusate Sodium 100 MG Cap PO SCH (08:52)
[2018-06-09] MEDS ORDERED: Hydrochlorothiazide 25 MG Tab PO SCH (09:00)
[2018-06-09] MEDS ORDERED: Cholecalciferol (Vitamin D3) 5,000 UNIT Tab PO SCH (09:00)
[2018-06-09] MEDS ORDERED: Rivaroxaban 10 MG Tab PO SCH (09:00)
[2018-06-09] MEDS ORDERED: Losartan 100 MG Tab PO SCH (09:00)
[2018-06-09] MEDS ORDERED: Tamsulosin 0.4 MG Cap.ER PO SCH (09:00)
[2018-06-09] MEDS ORDERED: Metoprolol Tartrate 25 MG Tab PO SCH (09:00)
--- NOTE | 2018-06-09 13:32 | PCM.DCSUM1 ---
Discharge Summary - Hospital Course Brief History: Brandt is a 67 yo male who underwent left KAYLA with Dr. Johnson on 06-08. The procedure was completed under spinal anesthesia with MAC. The pt tolerated the procedure well and was admitted to the Medical-Surgical Unit. Medical management was provided by the Hospitalist service. The pt's Hospital course was uneventful. The pt's Hgb on POD#1 was 12.3. On POD#1, Xarelto 10mg PO daily was initiated for VTE prophylaxis. SCDs and TEDs were also ordered. A Mepilex dressing was placed at the incision site at the time of surgery and remained clean and dry. The pt participated in P.T. and O.T. and progressed well. He followed the KAYLA precautions. The pt was allowed to WBAT. On POD#1, the pt was deemed appropriate to discharge to home with his . - Discharge Data Discharge Date: 06/09/18 Discharge Disposition: Home, Self-Care 01 Condition: Good - Patient Summary/Data Consults: Consultations 06/08/18 06:28 OT Evaluation and Treatment [CONS] Routine PT Evaluation and Treatment [CONS] Routine 06/08/18 06:29 Consult to Physician [CONS] Routine - Patient Instructions Diet: Usual Diet as Tolerated Activity: Apply Ice, As Tolerated, Elevate Extremity, Full Weight Bearing Activity, Other: Follow the Total Hip precautions. Driving: Do Not Drive Showering/Bathing: May Shower Wound/Incision Care: Keep Operative Site/Wound Site Clean and Dry, Do NOT Change Dressing Notify Provider of: Fever, Increased Pain, Swelling and Redness, Drainage, Nausea and/or Vomiting Other/Special Instructions: Please get up and moving around EVERY HOUR while awake. This helps to prevent blood clots. Please use your walker and have help with mobility as needed. Take a short walk in your home every hour while awake. Please take the Xarelto blood thinner medication daily. This helps to prevent blood clots. At home, please complete the exercises that you learned during the Hospital stay. Schedule for physical therapy. Use the pain medication as needed. The medication may cause drowsiness and constipation. Contact your primary care provider for instructions if you are constipated. You may use a stool softener like docusate sodium or Colace 100mg twice daily and/or a laxative like Miralax daily for constipation. Increase your water and fiber intake while you are using the pain medication. Discontinue use of the pain medication as soon as able. Please do not use other medications that may cause drowsiness (other pain medications, anxiety pills, cold medications, sleeping pills, etc) while using the prescription pain medication. Do not use alcohol while using the pain medication. You may use acetaminophen or Tylenol for pain management, however, please ensure you are not using over 4000 mg or 4 grams of acetaminophen per day from all sources. Your pain medication has 325mg of acetaminophen per tablet. At this time, please do not use ibuprofen ( Motrin, Advil) or naproxen (Aleve) for pain management as you are using the Xarelto. When the Xarelto course is completed in 5 weeks, you could use ibuprofen or naproxen for pain management (if this is allowed by your primary care provider). Wear the KULWANT hose during the day and you may remove these at night. Elevate the limb to decrease swelling. Place ice to the area often. Place a towel between your skin and the blue pad. Use the incentive spirometer often. Take deep breaths throughout the day. Please keep the dressing in place until follow-up. Notify the Clinic if the dressing becomes saturated. Increase your protein intake while you are healing. Because you have diabetes, please closely monitor your blood sugars and notify your primary care provider with abnormal values. Elevated blood sugars increases the risk of infection. Call the Clinic with questions or concerns - [phone]. - Discharge Plan *PRESCRIPTION DRUG MONITORING PROGRAM REVIEWED*: No *COPY OF PRESCRIPTION DRUG MONITORING REPORT IN PATIENT BENIGNO: No Prescriptions/Med Rec: Acetaminophen/oxyCODONE [Percocet 325-5 MG] 1 - 2 tab PO Q4H PRN #60 tablet PRN Reason: Pain Cyclobenzaprine [Flexeril] 10 mg PO TID PRN #40 tablet PRN Reason: Spasms Rivaroxaban [Xarelto] 10 mg PO DAILY #35 tablet Home Medications: Home Meds Metoprolol Tartrate 25 mg PO DAILY 04/29/18 [History] Tamsulosin HCl 0.4 mg PO DAILY 04/29/18 [History] Cholecalciferol (Vitamin D3) [Vitamin D3] 5,000 unit PO DAILY 06/05/18 [History] Telmisartan/Hydrochlorothiazid [Telmisartan-Hctz 80-25 mg Tab] 1 tab PO DAILY [History] Acetaminophen/oxyCODONE [Percocet 325-5 MG] 1 - 2 tab PO Q4H PRN #60 tablet [Rx] Bisacodyl [Dulcolax] 5 mg PO DAILY PRN tablet 06/08/18 [Rx] Cyclobenzaprine [Flexeril] 10 mg PO TID PRN #40 tablet 06/08/18 [Rx] Docusate Sodium [Colace] 100 mg PO BID cap 06/08/18 [Rx] K2-7. 500 units PO DAILY 06/08/18 [History] Maikake D. 40 mg PO DAILY 06/08/18 [History] Rivaroxaban [Xarelto] 10 mg PO DAILY #35 tablet 06/08/18 [Rx] Sennosides [Senna] 8.6 mg PO BID PRN tablet 06/08/18 [Rx] Referrals: Haydee Kim PA-C [Physician Home Improvement Installer] - (Please follow up with Haydee Kim on 06/16/18 at 0930, and a second follow up on 06/23/18 at 0945. ) - Discharge Summary/Plan Comment DC Time >30 min.: No - Patient Data Vitals - Most Recent: Last Vital Signs Temp 98.2 F 06/09/18 08:03 Pulse 87 06/09/18 08:51 Resp 16 06/09/18 08:03 BP 114/64 06/09/18 08:51 Pulse Ox 90 L 06/09/18 07:21 Weight - Most Recent: 230 lb I&O - Last 24 hours: Intake & Output 06/08/18 06/09/18 06/09/18 22:59 06:59 14:59 Intake Total 650 2440 0 Output Total 475 350 310 Balance 175 2090 -310 Lab Results - Last 24 hrs: Laboratory Results - last 24 hr 06/09/18 06/09/18 Range/Units 06:05 06:05 WBC 9.57 H (4.23-9.07) K/mm3 RBC 4.29 L (4.63-6.08) M/mm3 Hgb 12.3 L (13.7-17.5) gm/L Hct 39.3 L (40.1-51.0) % MCV 91.6 (79.0-92.2) fl MCH 28.7 (25.7-32.2) pg MCHC 31.3 L (32.2-35.5) g/dl RDW Std Deviation 48.4 H (35.1-43.9) fL Plt Count 183 (163-337) K/mm3 MPV 11.0 (9.4-12.3) fl Sodium 140 (136-145) mEq/L Potassium 4.4 (3.5-5.1) mEq/L Chloride 105 (98-107) mEq/L Carbon Dioxide 28 (21-32) mEq/L Anion Gap 11.4 (5-15) BUN 22 H (7-18) mg/dL Creatinine 1.2 (0.7-1.3) mg/dL Est Cr Clr Drug Dosing 85.73 mL/min Estimated GFR (MDRD) > 60 (>60) mL/min BUN/Creatinine Ratio 18.3 H (14-18) Glucose 95 (80-115) mg/dL Calcium 8.4 L (8.5-10.1) mg/dL Total Bilirubin 0.6 (0.2-1.0) mg/dL AST 30 (15-37) U/L ALT 26 (16-63) U/L Alkaline Phosphatase 68 (46-116) U/L Total Protein 6.0 L (6.4-8.2) g/dl Albumin 2.9 L (3.4-5.0) g/dl Globulin 3.1 gm/dL Albumin/Globulin Ratio 0.9 L (1-2) Med Orders - Current: Current Medications Bisacodyl (Dulcolax) 5 mg PO DAILY PRN PRN Reason: Constipation Cholecalciferol (Vitamin D3) 5,000 unit PO DAILY [facility] Last Admin: 06/09/18 08:52 Dose: 5,000 unit Cyclobenzaprine HCl (Flexeril) 10 mg PO TID PRN PRN Reason: Spasms Docusate Sodium (Colace) 100 mg PO BID [facility] Last Admin: 06/09/18 08:52 Dose: 100 mg Famotidine (Pepcid) 20 mg PO Q12H [facility] Last Admin: 06/09/18 06:00 Dose: 20 mg Hydrochlorothiazide (Hydrochlorothiazide) 25 mg PO DAILY [facility] Last Admin: 06/09/18 08:50 Dose: 25 mg Losartan Potassium (Cozaar) 100 mg PO DAILY [facility] Last Admin: 06/09/18 08:51 Dose: 100 mg Magnesium Hydroxide (Milk Of Magnesia) 30 ml PO BID PRN PRN Reason: Constipation Metoprolol Tartrate (Lopressor) 25 mg PO DAILY [facility] Last Admin: 06/09/18 08:51 Dose: 25 mg Morphine Sulfate (Morphine) 2 mg IVPUSH Q2H PRN PRN Reason: Breakthrough Pain Naloxone HCl (Narcan) 0.1 mg IVPUSH Q5M PRN PRN Reason: Oversedation Ondansetron HCl (Zofran) 4 mg IVPUSH Q6H PRN PRN Reason: Nausea/Vomiting Last Admin: 06/08/18 21:35 Dose: 4 mg Oxycodone/Acetaminophen (Percocet 325-5 Mg) 1 - 2 tab PO Q4H PRN PRN Reason: Pain Last Admin: 06/08/18 15:00 Dose: 2 tab Rivaroxaban (Xarelto) 10 mg PO DAILY [facility] Last Admin: 06/09/18 08:52 Dose: 10 mg Scopolamine (Transderm-Scop) 1.5 mg TRDERM Q72H PRN PRN Reason: Nausea Last Admin: 06/08/18 19:04 Dose: 1.5 mg Senna (Senna) 8.6 mg PO BID PRN PRN Reason: Constipation Tamsulosin HCl (Flomax) 0.4 mg PO DAILY [facility] Last Admin: 06/09/18 08:50 Dose: 0.4 mg Discontinued Medications Acetaminophen (Tylenol) 975 mg PO ONETIME [facility] Last Admin: 06/08/18 07:38 Dose: 975 mg Bupivacaine HCl (Marcaine 0.25%) Confirm Administered Dose 30 ml .ROUTE .STK- MED ONE Stop: 06/08/18 07:08 Last Admin: 06/08/18 11:14 Dose: 30 ml Bupivacaine HCl (Sensorcaine-Mpf 0.75%) Confirm Administered Dose 30 ml .ROUTE .STK-MED ONE Stop: 06/08/18 07:48 Bupivacaine HCl/Dextrose (Marcaine 0.75% Spinal) Confirm Administered Dose 2 ml .ROUTE .STK-MED ONE Stop: 06/08/18 07:52 Cefazolin Sodium (Ancef) Confirm Administered Dose 2 gm .ROUTE .STK-MED ONE Stop: 06/08/18 07:08 Cefazolin Sodium (Ancef) Confirm Administered Dose 1 gm .ROUTE .STK-MED ONE Stop: 06/08/18 07:58 Last Admin: 06/08/18 11:09 Dose: 2 gm Cefazolin Sodium (Ancef) Confirm Administered Dose 1 gm .ROUTE .STK-MED ONE Stop: 06/08/18 07:58 Morphine Sulfate 8 mg/Epinephrine HCl 0.3 mg/Cefuroxime Sodium 750 mg/Ketorolac Tromethamine 30 mg/Sodium Chloride 27.9 ml 0 mg .XX ONETIME ONE Stop: 06/08/18 07:31 Last Admin: 06/08/18 16:42 Dose: Not Given Ephedrine Sulfate (Ephedrine Sulfate) 5 mg IVPUSH ONETIME PRN PRN Reason: Hypotension Stop: 06/08/18 18:00 Fentanyl (Sublimaze) Confirm Administered Dose 100 mcg .ROUTE .STK-MED ONE Stop: 06/08/18 07:00 Hydromorphone HCl (Dilaudid) 0.5 mg IVPUSH Q15M PRN PRN Reason: Pain (severe 7-10) Stop: 06/08/18 18:00 Lactated Ringer's (Ringers, Lactated) 1,000 mls @ 125 mls/hr IV ASDIRECTED [facility] Stop: 06/08/18 23:00 Last Admin: 06/08/18 07:15 Dose: 125 mls/hr Cefazolin Sodium/Dextrose 2 gm (/ Premix) 50 mls @ 100 mls/hr IV Q8H [facility] Stop: 06/09/18 07:29 Last Admin: 06/09/18 06:00 Dose: 100 mls/hr Lactated Ringer's (Ringers, Lactated) 1,000 mls @ 150 mls/hr IV .BOLUS ONE Stop: 06/08/18 18:37 Last Admin: 06/08/18 16:43 Dose: Not Given Sodium Chloride (Normal Saline) 500 mls @ 1,000 mls/hr IV ONETIME ONE Stop: 06/08/18 18:44 Last Admin: 06/08/18 19:46 Dose: Not Given Sodium Chloride (Normal Saline) 1,000 mls @ 50 mls/hr IV ASDIRECTED ELISE Last Admin: 06/09/18 04:19 Dose: 50 mls/hr Iodine (Iodine 2% Mild Tincture) Confirm Administered Dose 30 ml .ROUTE .STK- MED ONE Stop: 06/08/18 07:08 Last Admin: 06/08/18 11:06 Dose: 18 ml Ketorolac Tromethamine (Toradol) 15 mg IVPUSH Q6H PRN PRN Reason: Pain Last Admin: 06/09/18 08:52 Dose: 15 mg Lidocaine/Sodium Bicarbonate (Buffered Lidocaine 1% In Ns 8.4%) 0.25 ml IDERM ONETIME PRN PRN Reason: Prior to IV Start Stop: 06/08/18 23:00 Last Admin: 06/08/18 07:15 Dose: 0.25 ml Midazolam HCl (Versed 1 Mg/Ml) Confirm Administered Dose 2 mg .ROUTE .STK-MED ONE Stop: 06/08/18 07:00 Midazolam HCl (Versed 1 Mg/Ml) Confirm Administered Dose 2 mg .ROUTE .STK-MED ONE Stop: 06/08/18 09:34 Midazolam HCl (Versed 1 Mg/Ml) Confirm Administered Dose 2 mg .ROUTE .STK-MED ONE Stop: 06/08/18 09:44 Midazolam HCl (Versed 1 Mg/Ml) Confirm Administered Dose 2 mg .ROUTE .STK-MED ONE Stop: 06/08/18 10:05 Morphine Sulfate (Duramorph Pf) Confirm Administered Dose 10 mg .ROUTE .STK-MED ONE Stop: 06/08/18 07:06 Ondansetron HCl (Zofran) 4 mg IVPUSH ONETIME PRN PRN Reason: Nausea/Vomiting Stop: 06/08/18 18:00 Oxycodone HCl (Oxycontin) 10 mg PO ONETIME [facility] Last Admin: 06/08/18 07:38 Dose: 10 mg Phenylephrine HCl (Phenylephrine In Ns 100 Mcg/Ml) Confirm Administered Dose 1 mg .ROUTE .STK-MED ONE Stop: 06/08/18 07:01 Pregabalin (Lyrica) 50 mg PO ONETIME ONE Stop: 06/08/18 07:01 Last Admin: 06/08/18 07:38 Dose: 50 mg Propofol (Diprivan 20 Ml) Confirm Administered Dose 200 mg .ROUTE .STK-MED ONE Stop: 06/08/18 06:59 Propofol (Diprivan 20 Ml) Confirm Administered Dose 200 mg .ROUTE .STK-MED ONE Stop: 06/08/18 10:50 Scopolamine (Transderm-Scop) 1.5 mg TOP ONETIME ONE Stop: 06/05/18 11:16 Sodium Chloride (Saline Flush) 10 ml FLUSH ASDIRECTED PRN PRN Reason: Keep Vein Open Stop: 06/08/18 23:00 Tranexamic Acid (Cyklokapron) Confirm Administered Dose 1,000 mg .ROUTE .STK- MED ONE Stop: 06/08/18 07:08 Last Admin: 06/08/18 11:18 Dose: 1,000 mg Vancomycin HCl (Vancomycin) Confirm Administered Dose 1 gm .ROUTE .STK-MED ONE Stop: 06/08/18 07:08 Last Admin: 06/08/18 11:15 Dose: 1 gm
--- NOTE | 2018-06-12 08:48 | PCM.OPNOTE ---
- General Post-Op/Procedure Note Date of Surgery/Procedure: 06/08/18 Operative Procedure(s): left total hip arthroplasty Pre Op Diagnosis: left hip osteoarthrosis Post-Op Diagnosis: Same Anesthesia Technique: Local, MAC, Spinal Primary Surgeon: Fernando Johnson Anesthesia Provider: Chandrakant Tatum Continuous Process Tanner Rotary Drum: Haydee Kim Continuous Process Tanner Rotary Drum: Christie Murphy EBNemo in mLs: 600 Complications: None Condition: Good Free Text/Narrative:: 56 8 stem 36-5
--- NOTE | 2018-06-12 09:37 | OR ---
DATE OF OPERATION: 06/08/2018 SURGEON: Fernando Johnson MD OPERATION PERFORMED: Left total hip arthroplasty. PREOPERATIVE DIAGNOSIS: Left hip osteoarthrosis. POSTOPERATIVE DIAGNOSIS: Left hip osteoarthrosis. ANESTHESIA: Local MAC with spinal. ANESTHESIA PROVIDER: Chandrakant Tatum. ASSISTANTS: Haydee Kim PA-C, and Christie Murphy LPN. ESTIMATED BLOOD LOSS: 600 mL. COMPLICATIONS: None. CONDITION: Stable. IMPLANTS: 1. Ramon size 56 mm solid Tritanium acetabular cup. 2. Ramon size 36 mm polyethylene liner. 3. Ramon size 8 Accolade II stem. 4. [place] size 36 -5 Biolox femoral head. DESCRIPTION OF PROCEDURE: The patient was identified in the preoperative holding area. Proper site was marked and identified by the surgeon. The patient was taken back to the operating theater, where after adequate anesthesia, the patient was placed in the right lateral decubitus position. Axillary roll was placed. All bony prominences were well padded. Pegs were then placed and well padded. The patient's left hip was parallel to the floor. Left hip was then sterilely prepped and draped in the usual sterile fashion. OR time-out was performed. The patient received 2 g of IV Ancef. At this time, standard posterior incision was made, centered over the greater trochanter. This was taken down to the IT band and gluteal fascia, which was incised along the incisional length. Charnley retractor was then placed. Short external rotators were identified and a capsulotomy as well as takedown of the short external rotators was done from the level of the piriformis down to the lesser trochanter. Hip was then dislocated. Neck cut was then completed and found to be adequate. Attention was turned to the acetabulum. Anterior and posterior acetabular retractors were placed. Circumferential removal of the labrum was then done and the Pulvinar was then removed as well. Starting with a 48 reamer, I was able to ream medially and then I did ream up to a 54. I did do a trial 54 and it did seem to have adequate fit. I put a 54 mm Tritanium acetabular cup in, but it did not have enough purchase, so I reamed up to a 55 and placed a 56, and at that point, it had very adequate purchase with no need for screw fixation. The liner was then impacted into place for a 36 head. This was a flat liner. Attention was then turned to the femur. The box chisel was used out laterally. Starter awl was placed down the canal. Starting with the 0 broach, this was broached up to a size 8, which was found to be rotationally and vertically stable. At this time, trial implants were placed with a 0. This was found to be a little bit long, so we used a -5 and he was found to have adequate mu-ism of leg lengths and was stable throughout range of motion all the way into 90 degrees of internal rotation. At this time, the Accolade II stem size [address] with a 36 -5 head. The hip was then relocated. A #5 Ethibond suture was used for closure of the short external rotators and capsule. 1 L dilute Betadine solution was irrigated through the hip along with 3 L of pulse lavage irrigation with Ancef. Topical tranexamic acid as well as vancomycin powder was placed as well as a periarticular injection was completed. At this time, a #2 barbed suture was used for closure of the IT band and gluteal fascia, 2-0 Vicryl was used subcutaneously, and Prineo was used for the skin. The patient tolerated the procedure well and was sent to PACU in stable condition. RENAN /[id number]
== END 2018-06-09 13:40 | disposition home or self-care (01) | DRG 470 ==
LOC: JD.MS 06:57
PROVIDERS: ADMIT Orthopaedic Surgery; ATTEND Orthopaedic Surgery
PROC: 0SRB04Z Replacement of Left Hip Joint with Ceramic on Polyethylene Synthetic Substitute, Open Approach (ICD-10-PCS; principal; 2018-06-08)
DX: M16.12 Unilateral primary osteoarthritis, left hip (principal); K21.9 Gastro-esophageal reflux disease without esophagitis; G89.29 Other chronic pain; I10 Essential (primary) hypertension; G47.33 Obstructive sleep apnea (adult) (pediatric); H90.41 Sensorineural hearing loss, unilateral, right ear, with unrestricted hearing on the contralateral side; R42 Dizziness and giddiness; E78.5 Hyperlipidemia, unspecified; E66.9 Obesity, unspecified; C61 Malignant neoplasm of prostate; E11.9 Type 2 diabetes mellitus without complications; M54.9 Dorsalgia, unspecified; E78.00 Pure hypercholesterolemia, unspecified; Z79.899 Other long term (current) drug therapy; Z87.891 Personal history of nicotine dependence; Z87.01 Personal history of pneumonia (recurrent); Z79.82 Long term (current) use of aspirin; Z68.36 Body mass index [BMI] 36.0-36.9, adult
CPT/HCPCS: 01214; 36415; 73501-26-LT; 73501-LT; 80053; 85027; 87641; 94760; 97110-GP; 97116-GP; 97161-GP; 97165-GO; 97535-GO; A9270-GY; C1776; J0171; J0690; J0697; J1885; J2250; J2270; J2370; J2405; J2704; J3010; J3370; J3490; J7040; J7120

== ENCOUNTER 2019-05-17 12:45 | Inpatient (IN) | payer MEDICARE, BC ==
[2019-07-19] MEDS ORDERED: Lidocaine 1%/Sod Bicarbonate in NS 8.4% 1 ML Syringe IDERM PRN (00:01)
[2019-07-19] MEDS ORDERED: Sodium Chloride 0.9% 10 ML Syringe FLUSH PRN (00:01)
[2019-07-19] MEDS ORDERED: Lactated Ringers 1,000 ML IV SCH (00:01)
[2019-07-19] MEDS ORDERED: Scopolamine 1.5 MG Transdermal Patch TRDERM PRN (05:57)
--- NOTE | 2019-07-19 05:58 | PCM.PREANE ---
<Carmen Liang - Last Filed: 07/19/19 05:53> Preanesthetic Assessment - Anesthesia/Transfusion/Family Hx Anesthesia History: Prior Anesthesia Without Reaction Family History of Anesthesia Reaction: No Transfusion History: No Prior Transfusion(s) Intubation History: Unknown - Review of Systems Pulmonary: No Symptoms (ROSARIO with CPAP, quit smoking 1998), Shortness of Breath Cardiovascular: No Symptoms (elevated cholesterol, HTN), Dyspnea on Exertion, Lightheadedness Gastrointestinal: No Symptoms (GERD, PONV, history of prostate Ca, BPH) Neurological: No Symptoms (vertigo, chronic back pain), Dizziness Other: Reports: Easy Bleeding, Easy Bruising, Sinus Problem (seasonal allergies) - Physical Assessment NPO Status Date: 07/18/19 Vital Signs: Last Vital Signs Temp 36.4 C 07/19/19 08:40 Pulse 71 07/19/19 08:40 Resp 16 07/19/19 08:40 BP 129/58 L 07/19/19 08:40 Pulse Ox 96 07/19/19 08:40 HR: Sat: Resp: Temp: B/P: Height: 1.7 m ASA Class: 3 Mental Status: Alert & Oriented x3 Dentition: Reports: Archbald(s) - Lab Values: Laboratory Last Values MRSA (PCR) Negative 07/07/19 15:29 All labs reviewed and noted and within acceptable ranges to proceed with scheduled procedure. - Imaging/EKG Impressions: CXR: negative EKG:SR rate= 75, abnormal r wave progression - Allergies Allergies/Adverse Reactions: Allergies Allergy/AdvReac Type Severity Reaction Status Date / Time No Known Allergies Allergy Verified 07/18/19 10:11 - Anesthesia Plan Pre-Op Medication Ordered: Beta Henrietta, Other (Tylenol, lyrica, oxycodone all p.o. at ) Beta Henrietta: Metoprolol Med Last Dose Date: 07/19/19 - Acknowledgements Anesthesia Type Planned: Spinal Pt an Appropriate Candidate for the Planned Anesthesia: Yes Alternatives and Risks of Anesthesia Discussed w Pt/Guardian: Yes Pt/Guardian Understands and Agrees with Anesthesia Plan: Yes PreAnesthesia Questionnaire HEENT History: Reports: Other (See Below) Other HEENT History: hearing loss, cataract Cardiovascular History: Reports: High Cholesterol, Hypertension Respiratory History: Reports: Pneumonia, Recurrent, Sleep Apnea Other Respiratory History: wears c-pap Gastrointestinal History: Reports: GERD Genitourinary History: Reports: Other (See Below) Other Genitourinary History: nocturia [employer] 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 History: Reports: None Musculoskeletal History: Reports: Arthritis, Back Pain, Chronic Neurological History: Reports: Vertigo, Other (See Below) Other Neuro History: dizziness, syncope Psychiatric History: Reports: None Endocrine/Metabolic History: Reports: Diabetes, Type II, Obesity/BMI 30+ Hematologic History: Reports: None Immunologic History: Reports: None Oncologic (Cancer) History: Reports: None, Prostate, Other (See Below) Other Oncologic History: taking organic pills Dermatologic History: Reports: None - Infectious Disease History Infectious Disease History: Reports: None - Past Surgical History Head Surgeries/Procedures: Reports: None HEENT Surgical History: Reports: Cataract Surgery, Naso-Sinus Surgery Cardiovascular Surgical History: Reports: None Respiratory Surgical History: Reports: None GI Surgical History: Reports: Colonoscopy, EGD, Hernia, Inguinal Female Surgical History: Reports: None Male Surgical History: Reports: None Endocrine Surgical History: Reports: None Neurological Surgical History: Reports: None Musculoskeletal Surgical History: Reports: Hip Replacement, Other (See Below) Dermatological Surgical History: Reports: None - SUBSTANCE USE Smoking Status *Q: Former Smoker Second Hand Smoke Exposure: No Recreational Drug Use History: No - HOME MEDS Home Medications: Home Meds Tamsulosin HCl 0.4 mg PO DAILY 04/29/18 [History] Cholecalciferol (Vitamin D3) [Vitamin D3] 5,000 unit PO DAILY 06/05/18 [History] Telmisartan/Hydrochlorothiazid [Telmisartan-Hctz 80-25 mg Tab] 1 tab PO DAILY [History] Metoprolol Succinate 25 mg PO DAILY 07/18/19 [History] Sildenafil [Revatio] 20 mg PO ASDIRECTED PRN 07/18/19 [History] SitaGLIPtin [Januvia] 100 mg PO DAILY 07/18/19 [History] traMADol HCl [Tramadol HCl] 50 mg PO Q6H PRN 07/18/19 [History] - CURRENT (IN HOUSE) MEDS Current Meds: Current Medications Acetaminophen (Tylenol) 975 mg PO ONETIME [facility] Stop: 07/19/19 14:00 Last Admin: 07/19/19 08:56 Dose: 975 mg Bisacodyl (Dulcolax) 5 mg PO DAILY PRN PRN Reason: Constipation Famotidine (Pepcid) 20 mg PO Q12H [facility] Lactated Ringer's (Ringers, Lactated) 1,000 mls @ 125 mls/hr IV ASDIRECTED [facility] Stop: 07/19/19 23:00 Lidocaine/Sodium Bicarbonate (Buffered Lidocaine 1% In Ns 8.4%) 0.25 ml IDERM ONETIME PRN PRN Reason: Prior to IV Start Stop: 07/19/19 18:00 Magnesium Hydroxide (Milk Of Magnesia) 30 ml PO BID PRN PRN Reason: Constipation Morphine Sulfate (Morphine) 2 mg IVPUSH Q2H PRN PRN Reason: Breakthrough Pain Naloxone HCl (Narcan) 0.1 mg IVPUSH Q5M PRN PRN Reason: Oversedation Ondansetron HCl (Zofran) 4 mg IVPUSH Q6H PRN PRN Reason: Nausea/Vomiting Oxycodone HCl (Oxycontin) 10 mg PO ONETIME [facility] Stop: 07/19/19 14:00 Last Admin: 07/19/19 08:55 Dose: 10 mg Pregabalin (Lyrica) 50 mg PO ONETIME [facility] Stop: 07/19/19 14:00 Last Admin: 07/19/19 08:56 Dose: 50 mg Rivaroxaban (Xarelto) 10 mg PO DAILY [facility] Scopolamine (Transderm-Scop) 1.5 mg TRDERM ONETIME PRN PRN Reason: PONV Senna (Senna) 8.6 mg PO BID PRN PRN Reason: Constipation Sodium Chloride (Saline Flush) 10 ml FLUSH ASDIRECTED PRN PRN Reason: Keep Vein Open Stop: 07/19/19 18:00 Discontinued Medications Bupivacaine HCl (Sensorcaine-Mpf 0.25%) Confirm Administered Dose 30 ml .ROUTE .STK-MED ONE Stop: 07/19/19 08:23 Cefazolin Sodium (Ancef) Confirm Administered Dose 2 gm .ROUTE .STK-MED ONE Stop: 07/19/19 06:30 Cefazolin Sodium (Ancef) Confirm Administered Dose 2 gm .ROUTE .STK-MED ONE Stop: 07/19/19 08:23 Fentanyl (Sublimaze) Confirm Administered Dose 100 mcg .ROUTE .STK-MED ONE Stop: 07/19/19 06:31 Lidocaine HCl (Xylocaine-Mpf 1%) Confirm Administered Dose 6 mls @ as directed .ROUTE .STK-MED ONE Stop: 07/19/19 06:30 Lactated Ringer's (Ringers, Lactated) Confirm Administered Dose 1,000 mls @ as directed .ROUTE .STK-MED ONE Stop: 07/19/19 06:30 Iodine (Iodine 2% Mild Tincture) Confirm Administered Dose 30 ml .ROUTE .STK- MED ONE Stop: 07/19/19 08:23 Ketamine HCl (Ketalar) Confirm Administered Dose 500 mg .ROUTE .STK-MED ONE Stop: 07/19/19 06:31 Midazolam HCl (Versed 1 Mg/Ml) Confirm Administered Dose 2 mg .ROUTE .STK-MED ONE Stop: 07/19/19 06:31 Miscellaneous Medication (Phenylephrine 1 Mg/10 Ml-Ns) Confirm Administered Dose 1 mg IV .STK-MED ONE Stop: 07/19/19 06:30 Ondansetron HCl (Zofran) Confirm Administered Dose 4 mg .ROUTE .STK-MED ONE Stop: 07/19/19 06:30 Propofol (Diprivan 20 Ml) Confirm Administered Dose 400 mg .ROUTE .STK-MED ONE Stop: 07/19/19 06:30 Tranexamic Acid (Cyklokapron) Confirm Administered Dose 1,000 mg .ROUTE .STK- MED ONE Stop: 07/19/19 08:23 Vancomycin HCl (Vancomycin) Confirm Administered Dose 1 gm .ROUTE .STK-MED ONE Stop: 07/19/19 08:23 <Silvia Miller - Last Filed: 07/19/19 09:08> Preanesthetic Assessment - Procedure Proposed Procedure: Right Total Hip Arthroplasty - Physical Assessment Thyro-Mental Finger Breadths: 2 Mouth Opening Finger Breadths: 3 ROM/Head Extension: Full Lungs: Clear to Auscultation, Normal Respiratory Effort Cardiovascular: Regular Rate, Regular Rhythm - Anesthesia Plan Med Last Dose Date: 07/18/19 Med Last Dose Time: 18:00
[2019-07-19] MEDS ORDERED: Acetaminophen 325 MG Tab PO SCH (06:00)
[2019-07-19] MEDS ORDERED: Pregabalin 25 MG Cap PO SCH (06:00)
[2019-07-19] MEDS ORDERED: oxyCODONE ER 10 MG TAB.ER PO SCH (06:00)
[2019-07-19] MEDS ORDERED: Lactated Ringers 1,000 ML ONE ×2 (06:29→11:11)
[2019-07-19] MEDS ORDERED: Lidocaine 1% 6 ML ONE (06:29)
[2019-07-19] MEDS ORDERED: ceFAZolin 1 GM Vial ONE (06:29)
[2019-07-19] MEDS ORDERED: Ondansetron 4 MG/2 ML SDV ONE (06:29)
[2019-07-19] MEDS ORDERED: Propofol 200 MG/20 ML SDV ONE (06:29)
[2019-07-19] MEDS ORDERED: fentaNYL 100 MCG/2 ML SDV ONE (06:30)
[2019-07-19] MEDS ORDERED: Midazolam 1 MG/ML 2 ML SDV ONE (06:30)
[2019-07-19] MEDS ORDERED: Ketamine 500 mg/10 ML MDV ONE (06:30)
[2019-07-19] MEDS ORDERED: Bisacodyl 5 MG Tab PO PRN (06:55)
[2019-07-19] MEDS ORDERED: Ondansetron 4 MG/2 ML SDV IVPUSH PRN ×2 (06:55→11:29)
[2019-07-19] MEDS ORDERED: Morphine 2 MG/ML Syringe IVPUSH PRN (06:55)
[2019-07-19] MEDS ORDERED: Sennosides 8.6 MG Tab PO PRN (06:55)
[2019-07-19] MEDS ORDERED: Naloxone 0.4 MG/ML SDV IVPUSH PRN (06:55)
--- NOTE | 2019-07-19 08:45 | PCM.CONS ---
H&P History of Present Illness - General Date of Service: 07/19/19 Admit Problem/Dx: Admission Diagnosis/Problem Admission Diagnosis/Problem Osteoarthritis of hip Source of Information: Patient, Old Records, Provider, RN, RN Notes Reviewed History Limitations: Reports: No Limitations - History of Present Illness Initial Comments - Free Text/Narative: Shay Kelly is a 68 yo male patient of Dr. Johnson who is post-operative day 0 of right KAYLA. Hospital medicine was consulted for post-operative medical care of the following listed medical conditions. At this time he is resting comfortably in bed. Pain is controlled. He denies any chest pain, shortness of breath, palpitations, nausea, or vomiting. He carries a history of: Prostate cancer, Chronic lower back pain, BPH, Pre-diabetes/elevated glucose, GERD, HTN, HLD, Obesity, ROSARIO with CPAP, Hard of hearing, tinnitus, urinary retention, hyperemia, vertigo, recurrent PNA. He is a former smoker who quit in 1998. He is a full code. His primary care provider is Dr. Germain. Left hip Pain Score (Numeric/FACES): 4 Right hip Pain Score (Numeric/FACES): 0 - Related Data Allergies/Adverse Reactions: Allergies Allergy/AdvReac Type Severity Reaction Status Date / Time No Known Allergies Allergy Verified 07/18/19 10:11 Home Medications: Home Meds Tamsulosin HCl 0.4 mg PO DAILY 04/29/18 [History] Cholecalciferol (Vitamin D3) [Vitamin D3] 5,000 unit PO DAILY 06/05/18 [History] Telmisartan/Hydrochlorothiazid [Telmisartan-Hctz 80-25 mg Tab] 1 tab PO DAILY [History] Metoprolol Succinate 25 mg PO DAILY 07/18/19 [History] Sildenafil [Revatio] 20 mg PO ASDIRECTED PRN 07/18/19 [History] SitaGLIPtin [Januvia] 100 mg PO DAILY 07/18/19 [History] traMADol HCl [Tramadol HCl] 50 mg PO Q6H PRN 07/18/19 [History] Past Medical History HEENT History: Reports: Other (See Below) Other HEENT History: hearing loss, cataract Cardiovascular History: Reports: High Cholesterol, Hypertension Respiratory History: Reports: Pneumonia, Recurrent, Sleep Apnea Other Respiratory History: wears c-pap Gastrointestinal History: Reports: GERD Genitourinary History: Reports: Other (See Below) Other Genitourinary History: nocturia TOP STEEP TENDER History: Reports: None Musculoskeletal History: Reports: Arthritis, Back Pain, Chronic Neurological History: Reports: Vertigo, Other (See Below) Other Neuro History: dizziness, syncope Psychiatric History: Reports: None Endocrine/Metabolic History: Reports: Diabetes, Type II, Obesity/BMI 30+ Hematologic History: Reports: None Immunologic History: Reports: None Oncologic (Cancer) History: Reports: None, Prostate, Other (See Below) Other Oncologic History: taking organic pills Dermatologic History: Reports: None - Infectious Disease History Infectious Disease History: Reports: None - Past Surgical History Head Surgeries/Procedures: Reports: None HEENT Surgical History: Reports: Cataract Surgery, Naso-Sinus Surgery Cardiovascular Surgical History: Reports: None Respiratory Surgical History: Reports: None GI Surgical History: Reports: Colonoscopy, EGD, Hernia, Inguinal Female Surgical History: Reports: None Male Surgical History: Reports: None Endocrine Surgical History: Reports: None Neurological Surgical History: Reports: None Musculoskeletal Surgical History: Reports: Hip Replacement, Other (See Below) Dermatological Surgical History: Reports: None Social & Family History - Family History Family Medical History: Noncontributory - Tobacco Use Smoking Status *Q: Former Smoker Used Tobacco, but Quit: Yes Month/Year Tobacco Last Used: 1989 Second Hand Smoke Exposure: No - Caffeine Use Caffeine Use: Reports: Coffee Caffeine Use Comment: 1 cup/day - Recreational Drug Use Recreational Drug Use: No H&P Review of Systems - Review of Systems: Review Of Systems: See Below General: Reports: Fatigue. Denies: Fever, Chills HEENT: Reports: No Symptoms. Denies: Headaches, Sore Throat Pulmonary: Reports: No Symptoms. Denies: Shortness of Breath, Wheezing, Pleuritic Chest Pain, Cough, Sputum Cardiovascular: Reports: No Symptoms. Denies: Chest Pain, Palpitations, Dyspnea on Exertion Gastrointestinal: Reports: No Symptoms. Denies: Abdominal Pain, Constipation, Diarrhea, Nausea, Vomiting Genitourinary: Reports: No Symptoms. Denies: Pain Musculoskeletal: Reports: Leg Pain (right ) Skin: Reports: No Symptoms. Denies: Cyanosis Psychiatric: Reports: No Symptoms. Denies: Confusion Neurological: Reports: Numbness, Tingling, Difficulty Walking, Gait Disturbance Hematologic/Lymphatic: Reports: No Symptoms Immunologic: Reports: No Symptoms Exam - Exam Exam: See Below - Exam Quality Assessment: Supplemental Oxygen (2L), DVT Prophylaxis General: Alert, Oriented, Cooperative. No: Mild Distress HEENT: Conjunctiva Clear, EACs Clear, EOMI, Hearing Intact, Mucosa Moist & Accident , Nares Patent, Posterior Pharynx Clear, PERRLA Neck: Supple, Trachea Midline Lungs: Clear to Auscultation, Normal Respiratory Effort Cardiovascular: Regular Rate, Regular Rhythm GI/Abdominal Exam: Normal Bowel Sounds, Soft, Non-Tender, No Distention (Male) Exam: Deferred Rectal (Males) Exam: Deferred Back Exam: Normal Inspection, Full Range of Motion Extremities: Normal Capillary Refill, Leg Pain, Limited Range of Motion, Other ( Bandage on right leg. Bandage is dry and intact. Cooling pack in place. ) Peripheral Pulses: 2+: Radial (L), Radial (R), Dorsalis Pedis (L), Dorsalis Pedis (R) Skin: Warm, Dry, Intact Neurological: Cranial Nerves Intact (grossly ) Neuro Extensive - Mental Status: Alert, Oriented x3 - Patient Data Result Diagrams: 07/19/19 07:00 Consult PN Assessment/Plan POD#: 0 Procedures: Procedures ASSAY OF BLOOD/URIC ACID (07/02/19) ASSAY OF TROPONIN QUANT (04/30/18) ASSAY THYROID STIM HORMONE (07/02/19) BONE IMAGING (3D) (04/27/18) C-REACTIVE PROTEIN (07/02/19) COMPLETE CBC AUTOMATED (06/08/18) COMPREHEN METABOLIC PANEL (07/02/19) CT THORAX W/O DYE (05/12/15) CULTURE OTHR SPECIMN AEROBIC (08/18/15) DRAIN/INJ JOINT/BURSA W/O US (01/15/19) ELECTROCARDIOGRAM TRACING (04/29/18) EMERGENCY DEPT VISIT (04/29/18) GAIT TRAINING THERAPY (06/08/18) GLYCOSYLATED HEMOGLOBIN TEST (07/02/19) LIPID PANEL (07/02/19) MEASURE BLOOD OXYGEN LEVEL (06/08/18) MR-STAPH DNA AMP PROBE (06/08/18) MRI ABDOMEN W/O DYE (05/12/15) OT EVAL LOW COMPLEX 30 MIN (06/08/18) PT EVAL LOW COMPLEX 20 MIN (06/08/18) ROUTINE VENIPUNCTURE (07/02/19) SELF CARE MNGMENT TRAINING (06/08/18) THERAPEUTIC EXERCISES (06/08/18) URINALYSIS AUTO W/O SCOPE (07/02/19) URINE CULTURE/COLONY COUNT (05/03/15) VITAMIN B-12 (07/02/19) X-RAY EXAM CHEST 2 VIEWS (07/02/19) X-RAY EXAM HIP UNI 1 VIEW (06/08/18) (1) S/P total hip arthroplasty SNOMED Code(s): 980626378080, 339883618830 Code(s): Z96.649 - PRESENCE OF UNSPECIFIED ARTIFICIAL HIP JOINT Priority: High Current Visit: No Qualifiers: Laterality: right Qualified Code(s): Z96.641 - Presence of right artificial hip joint (2) Osteoarthritis SNOMED Code(s): 166468943 Code(s): M19.90 - UNSPECIFIED OSTEOARTHRITIS, UNSPECIFIED SITE Priority: High Current Visit: Yes Qualifiers: Osteoarthritis location: hip Osteoarthritis type: primary Laterality: right Qualified Code(s): M16.11 - Unilateral primary osteoarthritis, right hip (3) Pre-diabetes SNOMED Code(s): 664209298 Code(s): R73.03 - PREDIABETES Priority: Medium Current Visit: No (4) Chronic low back pain SNOMED Code(s): 577623371 Code(s): M54.5 - LOW BACK PAIN; G89.29 - OTHER CHRONIC PAIN Priority: Low Current Visit: No Qualifiers: Back pain laterality: unspecified Sciatica presence: unspecified whether sciatica present Qualified Code(s): M54.5 - Low back pain; G89.29 - Other chronic pain (5) BPH (benign prostatic hyperplasia) SNOMED Code(s): 766710436 Code(s): N40.0 - BENIGN PROSTATIC HYPERPLASIA WITHOUT LOWER URINRY TRACT SYMP Priority: Low Current Visit: No (6) Vertigo SNOMED Code(s): 626278319 Code(s): R42 - DIZZINESS AND GIDDINESS Priority: Low Current Visit: No (7) Obesity SNOMED Code(s): 422304425, 614495302 Code(s): E66.9 - OBESITY, UNSPECIFIED Priority: Medium Current Visit: No Qualifiers: Obesity type: unspecified obesity type Obesity classification: adult class 2 (BMI 35 - 39.9) Body mass index: BMI 36.0-36.9 (8) Former smoker SNOMED Code(s): 2764279 Code(s): Z87.891 - PERSONAL HISTORY OF NICOTINE DEPENDENCE Priority: Low Current Visit: No (9) [place] (hard of hearing) SNOMED Code(s): 86491937 Code(s): H91.90 - UNSPECIFIED HEARING LOSS, UNSPECIFIED EAR Priority: Low Current Visit: No Qualifiers: Hearing loss type: unspecified Laterality: unspecified laterality Qualified Code(s): H91.90 - Unspecified hearing loss, unspecified ear (10) Hyperuricemia SNOMED Code(s): 75745549 Code(s): E79.0 - HYPERURICEMIA W/O SIGNS OF INFLAM ARTHRIT AND TOPHACEOUS DIS Priority: Low Current Visit: No (11) Tinnitus SNOMED Code(s): 90977964, 503119764 Code(s): H93.19 - TINNITUS, UNSPECIFIED EAR Priority: Low Current Visit: No Qualifiers: Laterality: unspecified laterality Qualified Code(s): H93.19 - Tinnitus, unspecified ear (12) Urinary retention SNOMED Code(s): 264125229 Code(s): R33.9 - RETENTION OF URINE, UNSPECIFIED Priority: Low Current Visit: No (13) Gastroesophageal reflux disease SNOMED Code(s): 384806279 Code(s): K21.9 - GASTRO-ESOPHAGEAL REFLUX DISEASE WITHOUT ESOPHAGITIS Priority: Medium Current Visit: No Qualifiers: Esophagitis presence: esophagitis presence not specified Qualified Code(s) : K21.9 - Gastro-esophageal reflux disease without esophagitis (14) HLD (hyperlipidemia) SNOMED Code(s): 61225469 Code(s): E78.5 - HYPERLIPIDEMIA, UNSPECIFIED Priority: Low Current Visit : No Qualifiers: Hyperlipidemia type: unspecified Qualified Code(s): E78.5 - Hyperlipidemia , unspecified (15) HTN (hypertension) SNOMED Code(s): 96382838 Code(s): I10 - ESSENTIAL (PRIMARY) HYPERTENSION Priority: Medium Current Visit: No Qualifiers: Hypertension type: unspecified Qualified Code(s): I10 - Essential (primary ) hypertension (16) ROSARIO on CPAP SNOMED Code(s): 34314561 Code(s): G47.33 - OBSTRUCTIVE SLEEP APNEA (ADULT) (PEDIATRIC); Z99.89 - DEPENDENCE ON OTHER ENABLING MACHINES AND DEVICES Priority: Medium Current Visit: No (17) Prostate cancer SNOMED Code(s): 074791212 Code(s): C61 - MALIGNANT NEOPLASM OF PROSTATE Priority: Medium Current Visit: No Problem List Initiated/Reviewed/Updated: Yes Plan: I/P: Acute: S/P right total knee arthroplasty - post-operative day 0 -DVT prophylaxis and pain management per primary care team -PT/OT -IS/RT -Monitor oxygen saturation -Titrate oxygen as needed -Home medications reviewed -Vital signs stable -Monitor labs -Pre-operative Hgb was 14.6 -Pre-operative GFR was 60 -Pre-operative creatinine was 1.8 -Pre-operative CRP was 1.8 -Pre-operative uric acid was 7.4 -Pre-operative A1C was 6.4% -Pre-operative 12-lead EKG shows NSR with abnormal R-wave progression -RT to set up patients home CPAP Osteoarthritis of right hip -Pain management per primary care team Chronic: Prostate cancer Chronic lower back pain BPH Pre-diabetes/elevated glucose GERD HTN HLD Obesity ROSARIO with CPAP Hard of hearing tinnitus urinary retention hyperemia vertigo recurrent PNA Plan: CM for discharge planning GI prophylaxis Home medications as indicated Other orders as listed above Routine AM labs He is a full code. His PCP is Dr. Germain Thank you for allowing us to participate in the care of this patient!! Requesting Provider: Dr. Johnson Date Consult Requested: 07/19/19 Patient History Reviewed: Yes Admission H&P Reviewed: Yes Notified Requestor: Yes
[2019-07-19] MEDS: Bupivacaine 0.25% 10 ML SDV ONE ×2 (10:48→11:22)
[2019-07-19] MEDS: ceFAZolin 1 GM Vial ONE ×2 (10:49→11:18)
[2019-07-19] MEDS: Iodine/Sodium Iodide 2% Tincture 30 ML Bottle ONE ×2 (10:49→11:15)
[2019-07-19] MEDS: Morphine Sulfate 8 MG, EPINEPHrine 0.3 MG, Cefuroxime 750 MG, Ketorolac 30 MG, Sodium C... SCH ×10 (10:49→11:23)
[2019-07-19] MEDS: Vancomycin 1 GM SDV ONE ×2 (10:50→11:24)
[2019-07-19] MEDS ORDERED: ePHEDrine 50 MG/ML SDV IVPUSH PRN (11:29)
[2019-07-19] MEDS ORDERED: fentaNYL 100 MCG/2 ML SDV IVPUSH PRN (11:29)
[2019-07-19] MEDS ORDERED: diphenhydrAMINE 50 MG/ML SDV IVPUSH PRN (11:29)
[2019-07-19] MEDS ORDERED: Albuterol 0.083% 2.5 MG/3 ML Neb Soln NEB PRN (11:29)
[2019-07-19] MEDS ORDERED: HYDROmorphone 0.5 MG/0.5 ML Syringe IVPUSH PRN (11:30)
[2019-07-19] MEDS ORDERED: Phenylephrine 1 MG in Sodium Chloride 0.9% 10 ML IV SCH (11:30)
[2019-07-19] MEDS ORDERED: ePHEDrine Sulfate/0.9% NaCl/Pf 25 MG/5 ML SYRINGE IV ONE (11:38)
--- NOTE | 2019-07-19 12:05 | PCM.POSTAN ---
POST ANESTHESIA ASSESSMENT - MENTAL STATUS Mental Status: Alert - VITAL SIGNS Vital Signs: Last Vital Signs Temp 36.4 C 07/19/19 11:58 Pulse 71 07/19/19 11:58 Resp 16 07/19/19 11:58 BP 129/58 L 07/19/19 11:58 Pulse Ox 96 07/19/19 11:58 - RESPIRATORY Respiratory Status: Respiratory Rate WNL, Airway Patent, O2 Saturation Stable, Supplemental Oxygen - CARDIOVASCULAR CV Status: Pulse Rate WNL, Blood Pressure Stable - GASTROINTESTINAL GI Status: No Symptoms - POST OP HYDRATION Hydration Status: Adequate & Stable
--- NOTE | 2019-07-19 12:32 | CR ---
Pelvis and right hip: AP view of the pelvis was obtained as well as crosstable lateral view of the right hip. Comparison: Prior pelvis and left hip study of 06/08/18. Newly placed right hip prosthesis is seen. Soft tissue air is noted around the right hip. Stable left hip prosthesis is seen. Nothing acute is otherwise seen. Impression: 1. Bilateral hip prosthesis. Diagnostic code #2 This report was dictated in MDT
[2019-07-19] MEDS ORDERED: Cyclobenzaprine 10 MG Tab PO PRN (16:37)
[2019-07-19] MEDS ORDERED: Ketorolac 15 MG/ML SDV IVPUSH PRN (16:37)
[2019-07-19] MEDS: ceFAZolin 2 GM in Premix Bag 1 BAG IV SCH (17:12)
[2019-07-19] MEDS: Insulin Lispro 100 Units/ML 3 ML Vial SUBCUT SCH ×2 (17:13→23:57)
[2019-07-19] MEDS: Acetaminophen/oxyCODONE 325-5 MG Tab PO PRN ×2 (17:16→23:44)
[2019-07-19] MEDS ORDERED: Magnesium Hydroxide 400 MG/5 ML Susp 30 ML Cup PO PRN (21:00)
[2019-07-19] MEDS: Docusate Sodium 100 MG Cap PO SCH (21:07)
[2019-07-19] MEDS: Famotidine 20 MG Tab PO SCH (21:08)
[2019-07-20] MEDS: ceFAZolin 2 GM in Premix Bag 1 BAG IV SCH ×2 (01:54→09:19)
[2019-07-20] MEDS: Acetaminophen/oxyCODONE 325-5 MG Tab PO PRN (06:32)
[2019-07-20] MEDS: Insulin Lispro 100 Units/ML 3 ML Vial SUBCUT SCH (07:33)
--- NOTE | 2019-07-20 07:43 | PCM.CONSN ---
- General Info Date of Service: 07/20/19 Admission Dx/Problem (Free Text): Admission Diagnosis/Problem Admission Diagnosis/Problem Osteoarthritis of hip Functional Status: Reports: Pain Controlled, Tolerating Diet, Ambulating, Urinating, Incentive Spirometry. Denies: New Symptoms - Review of Systems General: Reports: No Symptoms. Denies: Fever, Chills HEENT: Reports: No Symptoms. Denies: Headaches, Sore Throat Pulmonary: Reports: No Symptoms. Denies: Shortness of Breath, Pleuritic Chest Pain, Cough, Sputum, Wheezing Cardiovascular: Reports: No Symptoms. Denies: Chest Pain, Palpitations, Dyspnea on Exertion Gastrointestinal: Reports: No Symptoms. Denies: Abdominal Pain, Constipation, Diarrhea, Nausea Genitourinary: Reports: No Symptoms. Denies: Pain Musculoskeletal: Reports: Leg Pain Skin: Reports: No Symptoms. Denies: Cyanosis Neurological: Reports: Difficulty Walking, Gait Disturbance. Denies: Confusion Psychiatric: Reports: No Symptoms - Patient Data Vitals - Most Recent: Last Vital Signs Temp 98.8 F 07/20/19 05:10 Pulse 92 07/20/19 05:10 Resp 18 07/20/19 05:10 BP 113/79 07/20/19 05:10 Pulse Ox 95 07/20/19 05:10 Weight - Most Recent: 243 lb 4.8 oz I&O - Last 24 Hours: Intake & Output 07/19/19 07/20/19 07/20/19 22:59 06:59 14:59 Intake Total 620 2050 Output Total 0 730 Balance 620 1320 Lab Results Last 24 Hours: Laboratory Results - last 24 hr 07/19/19 07/19/19 07/19/19 Range/Units 07:00 08:00 17:10 WBC 8.28 (4.23-9.07) K/mm3 RBC 5.03 (4.63-6.08) M/mm3 Hgb 14.6 (13.7-17.5) gm/dl Hct 45.5 (40.1-51.0) % MCV 90.5 (79.0-92.2) fl MCH 29.0 (25.7-32.2) pg MCHC 32.1 L (32.2-35.5) g/dl RDW Std Deviation 48.9 H (35.1-43.9) fL Plt Count 238 (163-337) K/mm3 MPV 10.9 (9.4-12.3) fl Sodium (136-145) mEq/L Potassium (3.5-5.1) mEq/L Chloride (98-107) mEq/L Carbon Dioxide (21-32) mEq/L Anion Gap (5-15) BUN (7-18) mg/dL Creatinine (0.7-1.3) mg/dL Est Cr Clr Drug Dosing mL/min Estimated GFR (MDRD) (>60) mL/min BUN/Creatinine Ratio (14-18) Glucose (80-115) mg/dL POC Glucose 85 (80-115) mg/dL Calcium (8.5-10.1) mg/dL Total Bilirubin (0.2-1.0) mg/dL AST (15-37) U/L ALT (16-63) U/L Alkaline Phosphatase (46-116) U/L Total Protein (6.4-8.2) g/dl Albumin (3.4-5.0) g/dl Globulin gm/dL Albumin/Globulin Ratio (1-2) Blood Type B POSITIVE Gel Antibody Screen Negative 07/19/19 07/20/19 07/20/19 Range/Units 23:18 06:00 06:00 WBC 10.75 H (4.23-9.07) K/mm3 RBC 4.48 L (4.63-6.08) M/mm3 Hgb 12.9 L D (13.7-17.5) gm/dl Hct 40.7 (40.1-51.0) % MCV 90.8 (79.0-92.2) fl MCH 28.8 (25.7-32.2) pg MCHC 31.7 L (32.2-35.5) g/dl RDW Std Deviation 48.9 H (35.1-43.9) fL Plt Count 192 (163-337) K/mm3 MPV 10.5 (9.4-12.3) fl Sodium 138 (136-145) mEq/L Potassium 3.9 (3.5-5.1) mEq/L Chloride 102 (98-107) mEq/L Carbon Dioxide 28 (21-32) mEq/L Anion Gap 11.9 (5-15) BUN 23 H (7-18) mg/dL Creatinine 1.4 H (0.7-1.3) mg/dL Est Cr Clr Drug Dosing 45.90 mL/min Estimated GFR (MDRD) 50 (>60) mL/min BUN/Creatinine Ratio 16.4 (14-18) Glucose 112 (80-115) mg/dL POC Glucose 101 (80-115) mg/dL Calcium 8.5 (8.5-10.1) mg/dL Total Bilirubin 0.7 (0.2-1.0) mg/dL AST 41 H (15-37) U/L ALT 28 (16-63) U/L Alkaline Phosphatase 73 (46-116) U/L Total Protein 6.4 (6.4-8.2) g/dl Albumin 3.1 L (3.4-5.0) g/dl Globulin 3.3 gm/dL Albumin/Globulin Ratio 0.9 L (1-2) Blood Type Gel Antibody Screen 07/20/19 Range/Units 06:59 WBC (4.23-9.07) K/mm3 RBC (4.63-6.08) M/mm3 Hgb (13.7-17.5) gm/dl Hct (40.1-51.0) % MCV (79.0-92.2) fl MCH (25.7-32.2) pg MCHC (32.2-35.5) g/dl RDW Std Deviation (35.1-43.9) fL Plt Count (163-337) K/mm3 MPV (9.4-12.3) fl Sodium (136-145) mEq/L Potassium (3.5-5.1) mEq/L Chloride (98-107) mEq/L Carbon Dioxide (21-32) mEq/L Anion Gap (5-15) BUN (7-18) mg/dL Creatinine (0.7-1.3) mg/dL Est Cr Clr Drug Dosing mL/min Estimated GFR (MDRD) (>60) mL/min BUN/Creatinine Ratio (14-18) Glucose (80-115) mg/dL POC Glucose 115 (80-115) mg/dL Calcium (8.5-10.1) mg/dL Total Bilirubin (0.2-1.0) mg/dL AST (15-37) U/L ALT (16-63) U/L Alkaline Phosphatase (46-116) U/L Total Protein (6.4-8.2) g/dl Albumin (3.4-5.0) g/dl Globulin gm/dL Albumin/Globulin Ratio (1-2) Blood Type Gel Antibody Screen Med Orders - Current: Current Medications Bisacodyl (Dulcolax) 5 mg PO DAILY PRN PRN Reason: Constipation Cholecalciferol (Vitamin D3) 5,000 unit PO DAILY [facility] Cyclobenzaprine HCl (Flexeril) 10 mg PO TID PRN PRN Reason: Spasms Docusate Sodium (Colace) 100 mg PO BID [facility] Last Admin: 07/19/19 21:07 Dose: 100 mg Famotidine (Pepcid) 20 mg PO Q12H [facility] Last Admin: 07/19/19 21:08 Dose: 20 mg Cefazolin Sodium/Dextrose 2 gm (/ Premix) 50 mls @ 100 mls/hr IV Q8H [facility] Stop: 07/20/19 10:29 Last Admin: 07/20/19 01:54 Dose: 100 mls/hr Insulin Human Lispro (Humalog) 0 unit SUBCUT QIDACANDBED [facility]; Protocol Last Admin: 07/19/19 23:57 Dose: Not Given Ketorolac Tromethamine (Toradol) 15 mg IVPUSH Q6H PRN PRN Reason: Pain Last Admin: 07/19/19 18:25 Dose: 15 mg Magnesium Hydroxide (Milk Of Magnesia) 30 ml PO BID PRN PRN Reason: Constipation Metoprolol Succinate (Toprol Xl) 25 mg PO DAILY [facility] Morphine Sulfate (Morphine) 2 mg IVPUSH Q2H PRN PRN Reason: Breakthrough Pain Last Admin: 07/19/19 18:23 Dose: 2 mg Naloxone HCl (Narcan) 0.1 mg IVPUSH Q5M PRN PRN Reason: Oversedation Ondansetron HCl (Zofran) 4 mg IVPUSH Q6H PRN PRN Reason: Nausea/Vomiting Oxycodone/Acetaminophen (Percocet 325-5 Mg) 1 - 2 tab PO Q4H PRN PRN Reason: Pain Last Admin: 07/20/19 06:32 Dose: 1 tab Rivaroxaban (Xarelto) 10 mg PO DAILY [facility] Scopolamine (Transderm-Scop) 1.5 mg TRDERM ONETIME PRN PRN Reason: PONV Last Admin: 07/19/19 09:06 Dose: 1.5 mg Senna (Senna) 8.6 mg PO BID PRN PRN Reason: Constipation Tamsulosin HCl (Flomax) 0.4 mg PO DAILY [facility] Discontinued Medications Acetaminophen (Tylenol) 975 mg PO ONETIME [facility] Stop: 07/19/19 14:00 Last Admin: 07/19/19 08:56 Dose: 975 mg Albuterol (Proventil Neb Soln) 2.5 mg NEB ONETIME PRN PRN Reason: BRONCHODILATION Stop: 07/19/19 14:00 Bupivacaine HCl (Sensorcaine-Mpf 0.25%) Confirm Administered Dose 30 ml .ROUTE .STK-MED ONE Stop: 07/19/19 08:23 Last Admin: 07/19/19 10:48 Dose: 30 ml Cefazolin Sodium (Ancef) Confirm Administered Dose 2 gm .ROUTE .STK-MED ONE Stop: 07/19/19 06:30 Cefazolin Sodium (Ancef) Confirm Administered Dose 2 gm .ROUTE .STK-MED ONE Stop: 07/19/19 08:23 Last Admin: 07/19/19 10:49 Dose: 2 gm Morphine Sulfate 8 mg/Epinephrine HCl 0.3 mg/Cefuroxime Sodium 750 mg/Ketorolac Tromethamine 30 mg/Sodium Chloride 7.9 ml 0 mg .XX ASDIRECTED [facility] Stop: 07/19/19 15:00 Last Admin: 07/19/19 10:49 Dose: 788.3 mg Diphenhydramine HCl (Benadryl) 25 mg IVPUSH Q6H PRN PRN Reason: pruritis Stop: 07/19/19 14:00 Ephedrine Sulfate (Ephedrine Sulfate) 5 mg IVPUSH ASDIRECTED PRN PRN Reason: Hypotension Stop: 07/19/19 14:00 Ephedrine Sulfate (Ephedrine 25 Mg/5 Ml Syringe) Confirm Administered Dose 25 mg IV .STK-MED ONE Stop: 07/19/19 11:39 Fentanyl (Sublimaze) Confirm Administered Dose 100 mcg .ROUTE .STK-MED ONE Stop: 07/19/19 06:31 Fentanyl (Sublimaze) 50 mcg IVPUSH Q5M PRN PRN Reason: Pain Stop: 07/19/19 14:00 Hydromorphone HCl (Dilaudid) 0.5 mg IVPUSH ONETIME PRN PRN Reason: Pain Stop: 07/19/19 14:00 Lactated Ringer's (Ringers, Lactated) 1,000 mls @ 125 mls/hr IV ASDIRECTED [facility] Stop: 07/19/19 23:00 Last Admin: 07/19/19 08:40 Dose: 125 mls/hr Lidocaine HCl (Xylocaine-Mpf 1%) Confirm Administered Dose 6 mls @ as directed .ROUTE .STK-MED ONE Stop: 07/19/19 06:30 Lactated Ringer's (Ringers, Lactated) Confirm Administered Dose 1,000 mls @ as directed .ROUTE .STK-MED ONE Stop: 07/19/19 06:30 Lactated Ringer's (Ringers, Lactated) Confirm Administered Dose 1,000 mls @ as directed .ROUTE .STK-MED ONE Stop: 07/19/19 11:12 Phenylephrine HCl 1 mg/ Sodium (Chloride) 10.1 mls @ 1 mls/sec IV TITRATE [facility]; Protocol Stop: 07/19/19 14:00 Iodine (Iodine 2% Mild Tincture) Confirm Administered Dose 30 ml .ROUTE .STK- MED ONE Stop: 07/19/19 08:23 Last Admin: 07/19/19 10:49 Dose: 18 ml Ketamine HCl (Ketalar) Confirm Administered Dose 500 mg .ROUTE .STK-MED ONE Stop: 07/19/19 06:31 Lidocaine/Sodium Bicarbonate (Buffered Lidocaine 1% In Ns 8.4%) 0.25 ml IDERM ONETIME PRN PRN Reason: Prior to IV Start Stop: 07/19/19 18:00 Last Admin: 07/19/19 08:40 Dose: 0.25 ml Midazolam HCl (Versed 1 Mg/Ml) Confirm Administered Dose 2 mg .ROUTE .STK-MED ONE Stop: 07/19/19 06:31 Miscellaneous Medication (Phenylephrine 1 Mg/10 Ml-Ns) Confirm Administered Dose 1 mg IV .STK-MED ONE Stop: 07/19/19 06:30 Non-Formulary Medication (Cholecalciferol (Vitamin D3) [Vitamin D3]) 5,000 unit PO DAILY [facility] Ondansetron HCl (Zofran) Confirm Administered Dose 4 mg .ROUTE .STK-MED ONE Stop: 07/19/19 06:30 Ondansetron HCl (Zofran) 4 mg IVPUSH ONETIME PRN PRN Reason: Nausea/Vomiting Stop: 07/19/19 14:00 Oxycodone HCl (Oxycontin) 10 mg PO ONETIME [facility] Stop: 07/19/19 14:00 Last Admin: 07/19/19 08:55 Dose: 10 mg Pregabalin (Lyrica) 50 mg PO ONETIME [facility] Stop: 07/19/19 14:00 Last Admin: 07/19/19 08:56 Dose: 50 mg Propofol (Diprivan 20 Ml) Confirm Administered Dose 400 mg .ROUTE .STK-MED ONE Stop: 07/19/19 06:30 Sodium Chloride (Saline Flush) 10 ml FLUSH ASDIRECTED PRN PRN Reason: Keep Vein Open Stop: 07/19/19 18:00 Tranexamic Acid (Cyklokapron) Confirm Administered Dose 1,000 mg .ROUTE .STK- MED ONE Stop: 07/19/19 08:23 Last Admin: 07/19/19 10:50 Dose: 1,000 mg Vancomycin HCl (Vancomycin) Confirm Administered Dose 1 gm .ROUTE .STK-MED ONE Stop: 07/19/19 08:23 Last Admin: 07/19/19 10:50 Dose: 1 gm - Exam Quality Assessment: DVT Prophylaxis General: Alert, Oriented, Cooperative, No Acute Distress HEENT: Pupils Equal, Pupils Reactive, Mucous Membr. Moist/[place] Neck: Supple, Trachea Midline Lungs: Clear to Auscultation, Normal Respiratory Effort Cardiovascular: Regular Rate, Regular Rhythm GI/Abdominal Exam: Normal Bowel Sounds, Soft, Non-Tender, No Distention (Male) Exam: Deferred Back Exam: Normal Inspection, Full Range of Motion Extremities: Normal Capillary Refill, Limited Range of Motion, Other (Bandage in place on right leg. Cooling pack in place. ) Peripheral Pulses: 2+: Radial (L), Radial (R), Dorsalis Pedis (L), Dorsalis Pedis (R) Skin: Warm, Dry, Intact Wound/Incisions: Dressing Dry and Intact Neurological: No New Focal Deficit Psy/Mental Status: Alert, Normal Affect, Normal Mood Consult PN Assessment/Plan POD#: 1 Procedures: Procedures ASSAY OF BLOOD/URIC ACID (07/02/19) ASSAY OF TROPONIN QUANT (04/30/18) ASSAY THYROID STIM HORMONE (07/02/19) BONE IMAGING (3D) (04/27/18) C-REACTIVE PROTEIN (07/02/19) COMPLETE CBC AUTOMATED (06/08/18) COMPREHEN METABOLIC PANEL (07/02/19) CT THORAX W/O DYE (05/12/15) CULTURE OTHR SPECIMN AEROBIC (08/18/15) DRAIN/INJ JOINT/BURSA W/O US (01/15/19) ELECTROCARDIOGRAM TRACING (04/29/18) EMERGENCY DEPT VISIT (04/29/18) GAIT TRAINING THERAPY (06/08/18) GLYCOSYLATED HEMOGLOBIN TEST (07/02/19) LIPID PANEL (07/02/19) MEASURE BLOOD OXYGEN LEVEL (06/08/18) MR-STAPH DNA AMP PROBE (06/08/18) MRI ABDOMEN W/O DYE (05/12/15) OT EVAL LOW COMPLEX 30 MIN (06/08/18) PT EVAL LOW COMPLEX 20 MIN (06/08/18) ROUTINE VENIPUNCTURE (07/02/19) SELF CARE MNGMENT TRAINING (06/08/18) THERAPEUTIC EXERCISES (06/08/18) URINALYSIS AUTO W/O SCOPE (07/02/19) URINE CULTURE/COLONY COUNT (05/03/15) VITAMIN B-12 (07/02/19) X-RAY EXAM CHEST 2 VIEWS (07/02/19) X-RAY EXAM HIP UNI 1 VIEW (06/08/18) (1) S/P total hip arthroplasty SNOMED Code(s): 286432376335, 463154800602 Code(s): Z96.649 - PRESENCE OF UNSPECIFIED ARTIFICIAL HIP JOINT Priority: High Current Visit: No Qualifiers: Laterality: right Qualified Code(s): Z96.641 - Presence of right artificial hip joint (2) Osteoarthritis SNOMED Code(s): 965686588 Code(s): M19.90 - UNSPECIFIED OSTEOARTHRITIS, UNSPECIFIED SITE Priority: High Current Visit: Yes Qualifiers: Osteoarthritis location: hip Osteoarthritis type: primary Laterality: right Qualified Code(s): M16.11 - Unilateral primary osteoarthritis, right hip (3) Pre-diabetes SNOMED Code(s): 818912351 Code(s): R73.03 - PREDIABETES Priority: Medium Current Visit: No (4) Chronic low back pain SNOMED Code(s): 343664365 Code(s): M54.5 - LOW BACK PAIN; G89.29 - OTHER CHRONIC PAIN Priority: Low Current Visit: No Qualifiers: Back pain laterality: unspecified Sciatica presence: unspecified whether sciatica present Qualified Code(s): M54.5 - Low back pain; G89.29 - Other chronic pain (5) BPH (benign prostatic hyperplasia) SNOMED Code(s): 896788699 Code(s): N40.0 - BENIGN PROSTATIC HYPERPLASIA WITHOUT LOWER URINRY TRACT SYMP Priority: Low Current Visit: No (6) Vertigo SNOMED Code(s): 571147471 Code(s): R42 - DIZZINESS AND GIDDINESS Priority: Low Current Visit: No (7) Obesity SNOMED Code(s): 324415148, 181425012 Code(s): E66.9 - OBESITY, UNSPECIFIED Priority: Medium Current Visit: No Qualifiers: Obesity type: unspecified obesity type Obesity classification: adult class 2 (BMI 35 - 39.9) Body mass index: BMI 36.0-36.9 (8) Former smoker SNOMED Code(s): 9178555 Code(s): Z87.891 - PERSONAL HISTORY OF NICOTINE DEPENDENCE Priority: Low Current Visit: No (9) [place] (hard of hearing) SNOMED Code(s): 41930144 Code(s): H91.90 - UNSPECIFIED HEARING LOSS, UNSPECIFIED EAR Priority: Low Current Visit: No Qualifiers: Hearing loss type: unspecified Laterality: unspecified laterality Qualified Code(s): H91.90 - Unspecified hearing loss, unspecified ear (10) Hyperuricemia SNOMED Code(s): 86107216 Code(s): E79.0 - HYPERURICEMIA W/O SIGNS OF INFLAM ARTHRIT AND TOPHACEOUS DIS Priority: Low Current Visit: No (11) Tinnitus SNOMED Code(s): 64553551, 496965683 Code(s): H93.19 - TINNITUS, UNSPECIFIED EAR Priority: Low Current Visit: No Qualifiers: Laterality: unspecified laterality Qualified Code(s): H93.19 - Tinnitus, unspecified ear (12) Urinary retention SNOMED Code(s): 623783040 Code(s): R33.9 - RETENTION OF URINE, UNSPECIFIED Priority: Low Current Visit: No (13) Gastroesophageal reflux disease SNOMED Code(s): 267996780 Code(s): K21.9 - GASTRO-ESOPHAGEAL REFLUX DISEASE WITHOUT ESOPHAGITIS Priority: Medium Current Visit: No Qualifiers: Esophagitis presence: esophagitis presence not specified Qualified Code(s) : K21.9 - Gastro-esophageal reflux disease without esophagitis (14) HLD (hyperlipidemia) SNOMED Code(s): 56879159 Code(s): E78.5 - HYPERLIPIDEMIA, UNSPECIFIED Priority: Low Current Visit : No Qualifiers: Hyperlipidemia type: unspecified Qualified Code(s): E78.5 - Hyperlipidemia , unspecified (15) HTN (hypertension) SNOMED Code(s): 59828670 Code(s): I10 - ESSENTIAL (PRIMARY) HYPERTENSION Priority: Medium Current Visit: No Qualifiers: Hypertension type: unspecified Qualified Code(s): I10 - Essential (primary ) hypertension (16) ROSARIO on CPAP SNOMED Code(s): 99971602 Code(s): G47.33 - OBSTRUCTIVE SLEEP APNEA (ADULT) (PEDIATRIC); Z99.89 - DEPENDENCE ON OTHER ENABLING MACHINES AND DEVICES Priority: Medium Current Visit: No (17) Prostate cancer SNOMED Code(s): 574265425 Code(s): C61 - MALIGNANT NEOPLASM OF PROSTATE Priority: Medium Current Visit: No Problem List Initiated/Reviewed/Updated: Yes My Orders Last 24 Hours: My Active Orders 07/19/19 14:17 CPAP Noctural Home [RT BiPAP/CPAP] [] ASDIRECTED 07/19/19 15:30 Blood Glucose Check, Bedside [] QIDACANDBED 07/19/19 17:00 Insulin Lispro [HumaLOG] See Protocol SUBCUT QIDACANDBED 07/20/19 09:00 Cholecalciferol (Vitamin D3) [Vitamin D3] 5,000 unit PO DAILY Metoprolol Succinate [Toprol XL] 25 mg PO DAILY Tamsulosin [Flomax] 0.4 mg PO DAILY Plan: I/P: Acute: S/P right total knee arthroplasty - post-operative day 1 -DVT prophylaxis and pain management per primary care team -PT/OT -IS/RT -Monitor oxygen saturation -Titrate oxygen as needed -Home medications reviewed -Vital signs stable -Monitor labs -Pre-operative Hgb was 14.6, Now 12.9 -Pre-operative GFR was 60, Now 50 -Pre-operative creatinine was 1.2, Now 1.4 -Pre-operative uric acid was 7.4 -Pre-operative A1C was 6.4% -Pre-operative 12-lead EKG shows NSR with abnormal R-wave progression -RT to set up patients home CPAP Osteoarthritis of right hip -Pain management per primary care team Chronic: Prostate cancer Chronic lower back pain BPH Pre-diabetes/elevated glucose GERD HTN HLD Obesity ROSARIO with CPAP Hard of hearing tinnitus urinary retention hyperemia vertigo recurrent PNA Plan: CM for discharge planning GI prophylaxis Home medications as indicated Other orders as listed above Routine AM labs He is a full code. His PCP is Dr. Germain From a hospitalist standpoint Brandt is doing well. He has been up ambulating and working with therapies. He is off of oxygen and has urinated. His labs and vital signs remain stable. His pain is controlled. He is cleared for discharge pending primary team and PT/OT agreement. Thank you for allowing us to participate in the care of this patient!! Sepsis Event Note - Evaluation Sepsis Screening Result: No Definite Risk - Focused Exam Vital Signs: Vital Signs Temp Pulse Resp BP Pulse Ox Pulse Ox Pulse Ox 07/20/19 05:10 98.8 F 92 18 113/79 95 07/20/19 03:32 93 L 07/19/19 23:49 98.2 F 79 18 103/66 96 07/19/19 21:30 93 L 07/19/19 19:58 99.0 F 71 16 104/59 L 93 L Date Exam was Performed: 07/20/19 Time Exam was Performed: 09:17
--- NOTE | 2019-07-20 08:09 | PCM.SURGPN ---
- General Info Date of Service: 07/20/19 POD#: 1 Functional Status: Reports: Pain Controlled, Tolerating Diet, Ambulating, Urinating, Incentive Spirometry - Patient Data Vitals - Most Recent: Last Vital Signs Temp 98.8 F 07/20/19 05:10 Pulse 92 07/20/19 05:10 Resp 18 07/20/19 05:10 BP 113/79 07/20/19 05:10 Pulse Ox 95 07/20/19 05:10 Weight - Most Recent: 243 lb 4.8 oz I&O - Last 24 Hours: Intake & Output 07/19/19 07/20/19 07/20/19 22:59 06:59 14:59 Intake Total 620 2050 Output Total 0 730 Balance 620 1320 Lab Results Last 24 Hrs: Laboratory Results - last 24 hr 07/19/19 07/19/19 07/19/19 Range/Units 07:00 08:00 17:10 WBC 8.28 (4.23-9.07) K/mm3 RBC 5.03 (4.63-6.08) M/mm3 Hgb 14.6 (13.7-17.5) gm/dl Hct 45.5 (40.1-51.0) % MCV 90.5 (79.0-92.2) fl MCH 29.0 (25.7-32.2) pg MCHC 32.1 L (32.2-35.5) g/dl RDW Std Deviation 48.9 H (35.1-43.9) fL Plt Count 238 (163-337) K/mm3 MPV 10.9 (9.4-12.3) fl Sodium (136-145) mEq/L Potassium (3.5-5.1) mEq/L Chloride (98-107) mEq/L Carbon Dioxide (21-32) mEq/L Anion Gap (5-15) BUN (7-18) mg/dL Creatinine (0.7-1.3) mg/dL Est Cr Clr Drug Dosing mL/min Estimated GFR (MDRD) (>60) mL/min BUN/Creatinine Ratio (14-18) Glucose (80-115) mg/dL POC Glucose 85 (80-115) mg/dL Calcium (8.5-10.1) mg/dL Total Bilirubin (0.2-1.0) mg/dL AST (15-37) U/L ALT (16-63) U/L Alkaline Phosphatase (46-116) U/L Total Protein (6.4-8.2) g/dl Albumin (3.4-5.0) g/dl Globulin gm/dL Albumin/Globulin Ratio (1-2) Blood Type B POSITIVE Gel Antibody Screen Negative 07/19/19 07/20/19 07/20/19 Range/Units 23:18 06:00 06:00 WBC 10.75 H (4.23-9.07) K/mm3 RBC 4.48 L (4.63-6.08) M/mm3 Hgb 12.9 L D (13.7-17.5) gm/dl Hct 40.7 (40.1-51.0) % MCV 90.8 (79.0-92.2) fl MCH 28.8 (25.7-32.2) pg MCHC 31.7 L (32.2-35.5) g/dl RDW Std Deviation 48.9 H (35.1-43.9) fL Plt Count 192 (163-337) K/mm3 MPV 10.5 (9.4-12.3) fl Sodium 138 (136-145) mEq/L Potassium 3.9 (3.5-5.1) mEq/L Chloride 102 (98-107) mEq/L Carbon Dioxide 28 (21-32) mEq/L Anion Gap 11.9 (5-15) BUN 23 H (7-18) mg/dL Creatinine 1.4 H (0.7-1.3) mg/dL Est Cr Clr Drug Dosing 45.90 mL/min Estimated GFR (MDRD) 50 (>60) mL/min BUN/Creatinine Ratio 16.4 (14-18) Glucose 112 (80-115) mg/dL POC Glucose 101 (80-115) mg/dL Calcium 8.5 (8.5-10.1) mg/dL Total Bilirubin 0.7 (0.2-1.0) mg/dL AST 41 H (15-37) U/L ALT 28 (16-63) U/L Alkaline Phosphatase 73 (46-116) U/L Total Protein 6.4 (6.4-8.2) g/dl Albumin 3.1 L (3.4-5.0) g/dl Globulin 3.3 gm/dL Albumin/Globulin Ratio 0.9 L (1-2) Blood Type Gel Antibody Screen 07/20/19 Range/Units 06:59 WBC (4.23-9.07) K/mm3 RBC (4.63-6.08) M/mm3 Hgb (13.7-17.5) gm/dl Hct (40.1-51.0) % MCV (79.0-92.2) fl MCH (25.7-32.2) pg MCHC (32.2-35.5) g/dl RDW Std Deviation (35.1-43.9) fL Plt Count (163-337) K/mm3 MPV (9.4-12.3) fl Sodium (136-145) mEq/L Potassium (3.5-5.1) mEq/L Chloride (98-107) mEq/L Carbon Dioxide (21-32) mEq/L Anion Gap (5-15) BUN (7-18) mg/dL Creatinine (0.7-1.3) mg/dL Est Cr Clr Drug Dosing mL/min Estimated GFR (MDRD) (>60) mL/min BUN/Creatinine Ratio (14-18) Glucose (80-115) mg/dL POC Glucose 115 (80-115) mg/dL Calcium (8.5-10.1) mg/dL Total Bilirubin (0.2-1.0) mg/dL AST (15-37) U/L ALT (16-63) U/L Alkaline Phosphatase (46-116) U/L Total Protein (6.4-8.2) g/dl Albumin (3.4-5.0) g/dl Globulin gm/dL Albumin/Globulin Ratio (1-2) Blood Type Gel Antibody Screen Med Orders - Current: Current Medications Bisacodyl (Dulcolax) 5 mg PO DAILY PRN PRN Reason: Constipation Cholecalciferol (Vitamin D3) 5,000 unit PO DAILY [facility] Cyclobenzaprine HCl (Flexeril) 10 mg PO TID PRN PRN Reason: Spasms Docusate Sodium (Colace) 100 mg PO BID [facility] Last Admin: 07/19/19 21:07 Dose: 100 mg Famotidine (Pepcid) 20 mg PO Q12H [facility] Last Admin: 07/19/19 21:08 Dose: 20 mg Cefazolin Sodium/Dextrose 2 gm (/ Premix) 50 mls @ 100 mls/hr IV Q8H [facility] Stop: 07/20/19 10:29 Last Admin: 07/20/19 01:54 Dose: 100 mls/hr Insulin Human Lispro (Humalog) 0 unit SUBCUT QIDACANDBED [facility]; Protocol Last Admin: 07/20/19 07:33 Dose: Not Given Ketorolac Tromethamine (Toradol) 15 mg IVPUSH Q6H PRN PRN Reason: Pain Last Admin: 07/19/19 18:25 Dose: 15 mg Magnesium Hydroxide (Milk Of Magnesia) 30 ml PO BID PRN PRN Reason: Constipation Metoprolol Succinate (Toprol Xl) 25 mg PO DAILY [facility] Morphine Sulfate (Morphine) 2 mg IVPUSH Q2H PRN PRN Reason: Breakthrough Pain Last Admin: 07/19/19 18:23 Dose: 2 mg Naloxone HCl (Narcan) 0.1 mg IVPUSH Q5M PRN PRN Reason: Oversedation Ondansetron HCl (Zofran) 4 mg IVPUSH Q6H PRN PRN Reason: Nausea/Vomiting Oxycodone/Acetaminophen (Percocet 325-5 Mg) 1 - 2 tab PO Q4H PRN PRN Reason: Pain Last Admin: 07/20/19 06:32 Dose: 1 tab Rivaroxaban (Xarelto) 10 mg PO DAILY [facility] Scopolamine (Transderm-Scop) 1.5 mg TRDERM ONETIME PRN PRN Reason: PONV Last Admin: 07/19/19 09:06 Dose: 1.5 mg Senna (Senna) 8.6 mg PO BID PRN PRN Reason: Constipation Tamsulosin HCl (Flomax) 0.4 mg PO DAILY [facility] Discontinued Medications Acetaminophen (Tylenol) 975 mg PO ONETIME [facility] Stop: 07/19/19 14:00 Last Admin: 07/19/19 08:56 Dose: 975 mg Albuterol (Proventil Neb Soln) 2.5 mg NEB ONETIME PRN PRN Reason: BRONCHODILATION Stop: 07/19/19 14:00 Bupivacaine HCl (Sensorcaine-Mpf 0.25%) Confirm Administered Dose 30 ml .ROUTE .STK-MED ONE Stop: 07/19/19 08:23 Last Admin: 07/19/19 10:48 Dose: 30 ml Cefazolin Sodium (Ancef) Confirm Administered Dose 2 gm .ROUTE .STK-MED ONE Stop: 07/19/19 06:30 Cefazolin Sodium (Ancef) Confirm Administered Dose 2 gm .ROUTE .STK-MED ONE Stop: 07/19/19 08:23 Last Admin: 07/19/19 10:49 Dose: 2 gm Morphine Sulfate 8 mg/Epinephrine HCl 0.3 mg/Cefuroxime Sodium 750 mg/Ketorolac Tromethamine 30 mg/Sodium Chloride 7.9 ml 0 mg .XX ASDIRECTED [facility] Stop: 07/19/19 15:00 Last Admin: 07/19/19 10:49 Dose: 788.3 mg Diphenhydramine HCl (Benadryl) 25 mg IVPUSH Q6H PRN PRN Reason: pruritis Stop: 07/19/19 14:00 Ephedrine Sulfate (Ephedrine Sulfate) 5 mg IVPUSH ASDIRECTED PRN PRN Reason: Hypotension Stop: 07/19/19 14:00 Ephedrine Sulfate (Ephedrine 25 Mg/5 Ml Syringe) Confirm Administered Dose 25 mg IV .STK-MED ONE Stop: 07/19/19 11:39 Fentanyl (Sublimaze) Confirm Administered Dose 100 mcg .ROUTE .STK-MED ONE Stop: 07/19/19 06:31 Fentanyl (Sublimaze) 50 mcg IVPUSH Q5M PRN PRN Reason: Pain Stop: 07/19/19 14:00 Hydromorphone HCl (Dilaudid) 0.5 mg IVPUSH ONETIME PRN PRN Reason: Pain Stop: 07/19/19 14:00 Lactated Ringer's (Ringers, Lactated) 1,000 mls @ 125 mls/hr IV ASDIRECTED [facility] Stop: 07/19/19 23:00 Last Admin: 07/19/19 08:40 Dose: 125 mls/hr Lidocaine HCl (Xylocaine-Mpf 1%) Confirm Administered Dose 6 mls @ as directed .ROUTE .STK-MED ONE Stop: 07/19/19 06:30 Lactated Ringer's (Ringers, Lactated) Confirm Administered Dose 1,000 mls @ as directed .ROUTE .STK-MED ONE Stop: 07/19/19 06:30 Lactated Ringer's (Ringers, Lactated) Confirm Administered Dose 1,000 mls @ as directed .ROUTE .STK-MED ONE Stop: 07/19/19 11:12 Phenylephrine HCl 1 mg/ Sodium (Chloride) 10.1 mls @ 1 mls/sec IV TITRATE [facility]; Protocol Stop: 07/19/19 14:00 Iodine (Iodine 2% Mild Tincture) Confirm Administered Dose 30 ml .ROUTE .STK- MED ONE Stop: 07/19/19 08:23 Last Admin: 07/19/19 10:49 Dose: 18 ml Ketamine HCl (Ketalar) Confirm Administered Dose 500 mg .ROUTE .STK-MED ONE Stop: 07/19/19 06:31 Lidocaine/Sodium Bicarbonate (Buffered Lidocaine 1% In Ns 8.4%) 0.25 ml IDERM ONETIME PRN PRN Reason: Prior to IV Start Stop: 07/19/19 18:00 Last Admin: 07/19/19 08:40 Dose: 0.25 ml Midazolam HCl (Versed 1 Mg/Ml) Confirm Administered Dose 2 mg .ROUTE .STK-MED ONE Stop: 07/19/19 06:31 Miscellaneous Medication (Phenylephrine 1 Mg/10 Ml-Ns) Confirm Administered Dose 1 mg IV .STK-MED ONE Stop: 07/19/19 06:30 Non-Formulary Medication (Cholecalciferol (Vitamin D3) [Vitamin D3]) 5,000 unit PO DAILY [facility] Ondansetron HCl (Zofran) Confirm Administered Dose 4 mg .ROUTE .STK-MED ONE Stop: 07/19/19 06:30 Ondansetron HCl (Zofran) 4 mg IVPUSH ONETIME PRN PRN Reason: Nausea/Vomiting Stop: 07/19/19 14:00 Oxycodone HCl (Oxycontin) 10 mg PO ONETIME [facility] Stop: 07/19/19 14:00 Last Admin: 07/19/19 08:55 Dose: 10 mg Pregabalin (Lyrica) 50 mg PO ONETIME [facility] Stop: 07/19/19 14:00 Last Admin: 07/19/19 08:56 Dose: 50 mg Propofol (Diprivan 20 Ml) Confirm Administered Dose 400 mg .ROUTE .STK-MED ONE Stop: 07/19/19 06:30 Sodium Chloride (Saline Flush) 10 ml FLUSH ASDIRECTED PRN PRN Reason: Keep Vein Open Stop: 07/19/19 18:00 Tranexamic Acid (Cyklokapron) Confirm Administered Dose 1,000 mg .ROUTE .STK- MED ONE Stop: 07/19/19 08:23 Last Admin: 07/19/19 10:50 Dose: 1,000 mg Vancomycin HCl (Vancomycin) Confirm Administered Dose 1 gm .ROUTE .STK-MED ONE Stop: 07/19/19 08:23 Last Admin: 07/19/19 10:50 Dose: 1 gm - Exam Wound/Incisions: Dressing Dry and Intact General: Alert, Cooperative, No Acute Distress Lungs: Normal Respiratory Effort Extremities: Other (NVS intact for BLE. Kimo's negative. Right thigh soft. Independent sit to/from stand.) Sepsis Event Note - Evaluation Sepsis Screening Result: No Definite Risk - Focused Exam Vital Signs: Vital Signs Temp Pulse Resp BP Pulse Ox Pulse Ox Pulse Ox 07/20/19 05:10 98.8 F 92 18 113/79 95 07/20/19 03:32 93 L 07/19/19 23:49 98.2 F 79 18 103/66 96 07/19/19 21:30 93 L Date Exam was Performed: 07/20/19 Time Exam was Performed: 08:08 - Problem List Review Problem List Initiated/Reviewed/Updated: Yes - My Orders Last 24 Hours: Active Orders 24 hr Category Date Time Status Bladder Scan [RC] ASDIRECTED Care 07/19/19 19:25 Active Blood Glucose Check, Bedside [RC] QIDACANDBED Care 07/19/19 15:30 Active CPAP Noctural Home [RT BiPAP/CPAP] [RC] ASDIRECTED Care 07/19/19 14:17 Active Communication Order [RC] ASDIRECTED Care 07/19/19 19:25 Active Insert Urinary Catheter [OM.PC] ASDIRECTED Care 07/19/19 19:30 Ordered Notify Provider Intake and Out [RC] ASDIRECTED Care 07/19/19 19:25 Active Notify Provider [RC] ASDIRECTED Care 07/19/19 11:29 Active Pulse Oximetry [RC] ASDIRECTED Care 07/19/19 11:28 Active RT Aerosol Therapy [RC] ASDIRECTED Care 07/19/19 11:29 Active Ready for Discharge [RC] PER UNIT ROUTINE Care 07/20/19 08:07 Ordered [employer] Diet [DIET] Diet 07/19/19 Lunch Active Acetaminophen/oxyCODONE [Percocet 325-5 MG] Med 07/19/19 16:37 Active 1 - 2 tab PO Q4H PRN Cholecalciferol (Vitamin D3) [Vitamin D3] Med 07/20/19 09:00 Active 5,000 unit PO DAILY Cyclobenzaprine [Flexeril] Med 07/19/19 16:37 Active 10 mg PO TID PRN Docusate Sodium [Colace] Med 07/19/19 21:00 Active 100 mg PO BID Famotidine [Pepcid] Med 07/19/19 21:00 Active 20 mg PO Q12H Insulin Lispro [HumaLOG] Med 07/19/19 17:00 Active See Protocol SUBCUT QIDACANDBED Ketorolac [Toradol] Med 07/19/19 16:37 Active 15 mg IVPUSH Q6H PRN Magnesium Hydroxide [Milk of Magnesia] Med 07/19/19 21:00 Active 30 ml PO BID PRN Metoprolol Succinate [Toprol XL] Med 07/20/19 09:00 Active 25 mg PO DAILY Rivaroxaban [Xarelto] Med 07/20/19 09:00 Active 10 mg PO DAILY Tamsulosin [Flomax] Med 07/20/19 09:00 Active 0.4 mg PO DAILY ceFAZolin [Ancef] 2 gm Med 07/19/19 18:00 Active Premix Bag 1 bag IV Q8H Medication Orders Bisacodyl (Dulcolax) 5 mg PO DAILY PRN PRN Reason: Constipation Cholecalciferol (Vitamin D3) 5,000 unit PO DAILY [facility] Cyclobenzaprine HCl (Flexeril) 10 mg PO TID PRN PRN Reason: Spasms Docusate Sodium (Colace) 100 mg PO BID [facility] Last Admin: 07/19/19 21:07 Dose: 100 mg Famotidine (Pepcid) 20 mg PO Q12H [facility] Last Admin: 07/19/19 21:08 Dose: 20 mg Cefazolin Sodium/Dextrose 2 gm (/ Premix) 50 mls @ 100 mls/hr IV Q8H [facility] Stop: 07/20/19 10:29 Last Admin: 07/20/19 01:54 Dose: 100 mls/hr Infusion: 07/19/19 17:42 Dose: 100 mls/hr Admin: 07/19/19 17:12 Dose: 100 mls/hr Insulin Human Lispro (Humalog) 0 unit SUBCUT QIDACANDBED [facility]; Protocol Last Admin: 07/20/19 07:33 Dose: Admin: 07/19/19 23:57 Dose: Admin: 07/19/19 17:13 Dose: Not Given Ketorolac Tromethamine (Toradol) 15 mg IVPUSH Q6H PRN PRN Reason: Pain Last Admin: 07/19/19 18:25 Dose: 15 mg Magnesium Hydroxide (Milk Of Magnesia) 30 ml PO BID PRN PRN Reason: Constipation Metoprolol Succinate (Toprol Xl) 25 mg PO DAILY [facility] Morphine Sulfate (Morphine) 2 mg IVPUSH Q2H PRN PRN Reason: Breakthrough Pain Last Admin: 07/19/19 18:23 Dose: 2 mg Naloxone HCl (Narcan) 0.1 mg IVPUSH Q5M PRN PRN Reason: Oversedation Ondansetron HCl (Zofran) 4 mg IVPUSH Q6H PRN PRN Reason: Nausea/Vomiting Oxycodone/Acetaminophen (Percocet 325-5 Mg) 1 - 2 tab PO Q4H PRN PRN Reason: Pain Last Admin: 07/20/19 06:32 Dose: 1 tab Admin: 07/19/19 23:44 Dose: 1 tab Admin: 07/19/19 17:16 Dose: 2 tab Rivaroxaban (Xarelto) 10 mg PO DAILY [facility] Scopolamine (Transderm-Scop) 1.5 mg TRDERM ONETIME PRN PRN Reason: PONV Last Admin: 07/19/19 09:06 Dose: 1.5 mg Senna (Senna) 8.6 mg PO BID PRN PRN Reason: Constipation Tamsulosin HCl (Flomax) 0.4 mg PO DAILY [facility] - Assessment Assessment (Free Text/Narrative):: POD#1 - right KAYLA - Plan Plan (Free Text/Narrative):: 1. Discharge to home today. 2. Xarelto 10mg PO daily. 3. Outpatient therapy. 4. Hgb 12.9. The pt's case was discussed with Dr. Johnson.
[2019-07-20] MEDS ORDERED: Non-Formulary Medication 1 Each (Cholecalciferol (Vitamin D3) [Vitamin D3] 5,000 UNIT) PO SCH (09:00)
[2019-07-20] MEDS ORDERED: Rivaroxaban 10 MG Tab PO SCH (09:00)
[2019-07-20] MEDS ORDERED: Cholecalciferol (Vitamin D3) 5,000 UNIT Tab PO SCH (09:00)
[2019-07-20] MEDS ORDERED: Metoprolol Succinate 25 MG Tab.ER PO SCH (09:00)
[2019-07-20] MEDS ORDERED: Tamsulosin 0.4 MG Cap.ER PO SCH (09:00)
[2019-07-20] MEDS: Famotidine 20 MG Tab PO SCH (09:20)
[2019-07-20] MEDS: Docusate Sodium 100 MG Cap PO SCH (09:22)
--- NOTE | 2019-07-20 09:26 | PCM48HPAN ---
Post Anesthesia Note - EVALUATION WITHIN 48HRS OF ANESTHETIC Vital Signs in Normal Range: Yes Patient Participated in Evaluation: Yes Respiratory Function Stable: Yes Airway Patent: Yes Cardiovascular Function Stable: Yes Hydration Status Stable: Yes Pain Control Satisfactory: Yes Nausea and Vomiting Control Satisfactory: Yes Mental Status Recovered: Yes Vital Signs: Last Vital Signs Temp 37.1 C 07/20/19 05:10 Pulse 99 07/20/19 09:20 Resp 18 07/20/19 05:10 BP 110/85 07/20/19 09:20 Pulse Ox 95 07/20/19 05:10
--- NOTE | 2019-07-21 15:28 | PCM.OPNOTE ---
- General Post-Op/Procedure Note Date of Surgery/Procedure: 07/19/19 Operative Procedure(s): right total hip arthroplasty Pre Op Diagnosis: right hip osteoarthrosis Post-Op Diagnosis: Same Anesthesia Technique: Local, MAC, Spinal Primary Surgeon: Fernando Johnson Anesthesia Provider: Carmen Liang Exercise Physiologist: Haydee Kim Exercise Physiologist: Christie Murphy EBL in mLs: 350 Complications: None Condition: Good Free Text/Narrative:: 7 stem 54 cup 36-2.5
--- NOTE | 2019-07-21 20:24 | OR ---
DATE OF OPERATION: 07/19/2019 SURGEON: Fernando Johnson MD OPERATION PERFORMED: Right total hip arthroplasty. PREOPERATIVE DIAGNOSIS: Right hip osteoarthrosis. POSTOPERATIVE DIAGNOSIS: Right hip osteoarthrosis. ANESTHESIA: Local MAC with spinal. ANESTHESIA PROVIDER: Carmen Liang CRNA ASSISTANTS: Haydee Kim PA-C, and Christie Murphy LPN. ESTIMATED BLOOD LOSS: 350 mL. COMPLICATIONS: None. CONDITION: Stable. IMPLANT: 1. [place] size 7 Accolade II stem. 2. Ramon size 54 mm solid Tritanium II acetabular cup. 3. Ramon size 36, -2.5 Biolox femoral head. 4. 36 mm flat liner. DESCRIPTION OF PROCEDURE: The patient was identified in the preop holding area. Proper site was marked and identified by the surgeon. The patient was taken back to the operating theater, where after adequate anesthesia, the patient was placed in a left lateral decubitus position. Axillary roll was placed. The patient's gluteal fold was parallel to the floor. Pegs were then placed and well padded. Right hip was then sterilely prepped and draped in the usual sterile fashion. OR time- out was performed. The patient received 2 g IV Ancef at this time. Standard posterior incision was made centered over the greater trochanter. This was taken down to the IT band and gluteal fascia which was incised along the incisional length. Charnley retractor was then placed. Short external rotators identified and takedown with the short external rotators was done from the level of the piriformis down to the lesser trochanter. Hip was then dislocated. A neck cut was completed and found to be adequate. Attention was turned to the acetabulum. Anterior and posterior acetabular retractors were placed, found to be well positioned. Circumferential removal of the labrum was then done at this time. Removal of the pulvinar was done. Starting with a 48 reamer, I was able to ream up to a 54, which was found to have good cortical purchase with good bleeding cancellous bone. At this time, a 54 mm Tritanium II acetabular cup was impacted in a proper position and the 36 mm flat liner was then impacted into place. Attention was turned to the femur. Box chisel was used out laterally. Starter awl was placed down the canal. Starting with a 0 broach, I was able to broach up to a size 7 which was found to be rotationally and vertically stable. A 36, 0 head was then trialed and was found to be a little bit long, so then we did -2.5 and has had adequate jain of leg lengths and stable throughout range of motion. Trial implants were then removed and the size 7 Accolade II stem was impacted into place. The 36 mm -2.5 Biolox femoral head was impacted into place and the hip was relocated. A #5 Ethibond suture was used for closure of the short external rotators and capsule. 1 L dilute Betadine solution was irrigated through the hip along with 3 L pulse lavage irrigation with Ancef. Topical tranexamic acid and vancomycin powder were applied. A periarticular injection was completed. At this time, a #2 barbed suture was used for closure of IT band and gluteal fascia. 2-0 Vicryl was used subcutaneously and Prineo was used for the skin. The patient tolerated the procedure well and sent to PACU in stable condition. MMODAL /[id number]
== END 2019-07-20 10:53 | disposition home or self-care (01) | DRG 470 ==
LOC: JD.MS 07-19 08:35
PROVIDERS: ADMIT Orthopaedic Surgery; ATTEND Orthopaedic Surgery
PROC: 0SR901Z Replacement of Right Hip Joint with Metal Synthetic Substitute, Open Approach (ICD-10-PCS; principal; 2019-07-19)
DX: M16.11 Unilateral primary osteoarthritis, right hip (principal); E79.0 Hyperuricemia without signs of inflammatory arthritis and tophaceous disease; H10.10 Acute atopic conjunctivitis, unspecified eye; I10 Essential (primary) hypertension; K21.9 Gastro-esophageal reflux disease without esophagitis; E78.5 Hyperlipidemia, unspecified; E66.01 Morbid (severe) obesity due to excess calories; C61 Malignant neoplasm of prostate; E78.00 Pure hypercholesterolemia, unspecified; M54.5 Low back pain; G89.29 Other chronic pain; R73.03 Prediabetes; Z87.01 Personal history of pneumonia (recurrent); G47.33 Obstructive sleep apnea (adult) (pediatric); Z87.891 Personal history of nicotine dependence; Z68.38 Body mass index [BMI] 38.0-38.9, adult
CPT/HCPCS: 01214; 36415; 73501-26-RT; 73501-RT; 80053; 82962; 85027; 86850; 86900; 86901; 87641; 94760; 97110-GP; 97116-GP; 97161-GP; 97165-GO; 97530-GP; 97535-GO; A9270-GY; C1776; J0171; J0690; J0697; J1885; J2001; J2250; J2270; J2370; J2405; J2704; J3010; J3370; J3490; J7120

== ENCOUNTER 2019-08-25 08:41 | Emergency (ER) | payer MEDICARE, BC ==
[2019-08-25] MEDS ORDERED: Metoclopramide 10 MG/2 ML SDV IVPUSH ONE (09:23)
[2019-08-25] MEDS ORDERED: Dextrose 5%-Lactated Ringers 1,000 ML IV SCH (09:30)
--- NOTE | 2019-08-25 09:32 | EDM.PDOC ---
ED HPI GENERAL MEDICAL PROBLEM - General Chief Complaint: General Stated Complaint: SOB, LOW BACK PAIN,DISORIENTED Time Seen by Provider: 08/25/19 09:22 Source of Information: Reports: Patient History Limitations: Reports: No Limitations - History of Present Illness INITIAL COMMENTS - FREE TEXT/NARRATIVE: 68-year-old male presents to the ED generally not feeling well this morning. He is 5 weeks right total hip replacement and last day of Xarelto was last night. He is mildly nauseated. He is developed diffuse low back pain radiating down the right buttock to the posterior aspect of his leg to just below the knee. He has had previous lumbar spine surgery greater than 20 years ago he states bone was shaved at this time not sure if that means spinal stenosis or if he actually had a discectomy. Feeling short of breath although this is subjective since O2 sats are 97% on room air. He does not appear to be in any respiratory distress. Denies any chest pain. No headache. Has taken 2 tramadol 50 mg tablets this morning for back pain. States he was only on pain medicine for about a week after having his right hip replaced. He is voiding okay. Still having some mild problems with constipation. He believes his COVID exposure has been minimal as he has not been seeing grandkids etc. because they are self quarantined [place] headache. No nasal congestion. No cough or sputum production.. Onset: Gradual Onset Date: 08/24/19 (Low back pain started yesterday but worsened overnight. He slept fairly well however.) Duration: Hour(s):, Getting Worse (Right low back pain rating down his right posterior thigh to just below the knee.) Location: Reports: Back (Diffuse low back pain), Lower Extremity, Right Quality: Reports: Ache Severity: Moderate (70 8 out of 10. Better now since he took the tramadol.) Improves with: Reports: Rest Worsens with: Reports: Other (Worse with walking. He is using a gait aid i.e. a cane.) Context: Reports: Other. Denies: Activity, Exercise, Lifting, Sick Contact, Trauma Associated Symptoms: Reports: Loss of Appetite, Malaise, Nausea/Vomiting, Shortness of Breath. 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: Other (see below) (He took 2 tramadol 100 mg tablets before coming to the ED.) Back Pain Score (Numeric/FACES): 8 - Related Data Allergies Allergy/AdvReac Type Severity Reaction Status Date / Time No Known Allergies Allergy Verified 08/25/19 08:55 Home Meds: Home Meds Tamsulosin HCl 0.4 mg PO DAILY 04/29/18 [History] Cholecalciferol (Vitamin D3) [Vitamin D3] 5,000 unit PO DAILY 06/05/18 [History] Telmisartan/Hydrochlorothiazid [Telmisartan-Hctz 80-25 mg Tab] 1 tab PO DAILY 06/05/18 [History] Metoprolol Succinate 25 mg PO DAILY 07/18/19 [History] Acetaminophen/oxyCODONE [Percocet 325-5 MG] 1 - 2 tab PO Q4H PRN #60 tablet 07/20/19 [Rx] Cyclobenzaprine [Flexeril] 10 mg PO BID PRN #30 tablet 07/20/19 [Rx] Rivaroxaban [Xarelto] 10 mg PO DAILY #35 tablet 07/20/19 [Rx] bisacodyL [Dulcolax] 5 mg PO DAILY PRN tablet 07/20/19 [Rx] oxyCODONE HCl/Acetaminophen [Percocet 5-325 mg Tablet] 1 - 2 each PO Q4H PRN #24 tablet 08/25/19 [Rx] predniSONE [Prednisone] 20 mg PO BID #15 tablet 08/25/19 [Rx] traMADol [Ultram] 100 mg PO Q8HR PRN 08/25/19 [History] Past Medical History HEENT History: Reports: Other (See Below) Other HEENT History: hearing loss, cataract Cardiovascular History: Reports: Hypertension Respiratory History: Reports: Pneumonia, Recurrent, Sleep Apnea Other Respiratory History: wears c-pap Gastrointestinal History: Reports: GERD Genitourinary History: Reports: Other (See Below) Other Genitourinary History: nocturia GEOLOGICAL AIDE History: Reports: None Musculoskeletal History: Reports: Arthritis, Back Pain, Chronic Neurological History: Reports: Vertigo, Other (See Below) Other Neuro History: dizziness, syncope Psychiatric History: Reports: None Endocrine/Metabolic History: Reports: Obesity/BMI 30+ Hematologic History: Reports: None Immunologic History: Reports: None Oncologic (Cancer) History: Reports: Prostate, Other (See Below) Other Oncologic History: taking organic pills Dermatologic History: Reports: None - Infectious Disease History Infectious Disease History: Reports: None - Past Surgical History HEENT Surgical History: Reports: Naso-Sinus Surgery GI Surgical History: Reports: Colonoscopy, Hernia, Inguinal Musculoskeletal Surgical History: Reports: Other (See Below) Social & Family History - Family History Family Medical History: Noncontributory - Tobacco Use Smoking Status *Q: Never Smoker - Caffeine Use Caffeine Use: Reports: Coffee Caffeine Use Comment: 1 cup/day - Recreational Drug Use Recreational Drug Use: No - Living Situation & Occupation Living situation: Reports: Occupation: Employed ED ROS GENERAL - Review of Systems Review Of Systems: See Below Constitutional: Reports: Malaise, Weakness, Fatigue, Decreased Appetite. Denies: Fever, Chills, Weight Loss HEENT: Reports: Glasses (Only for reading.) Respiratory: Reports: Shortness of Breath. Denies: Wheezing (Checked of shortness of breath. O2 sats are 97% on room air.), Pleuritic Chest Pain, Cough, Sputum, Hemoptysis, Other Cardiovascular: Reports: Dyspnea on Exertion, Lightheadedness. Denies: No Symptoms, Chest Pain, Blood Pressure Problem, Claudication, Edema, Orthopnea Endocrine: Reports: Fatigue GI/Abdominal: Reports: Constipation (Some residual problems with constipation since right hip replacement 5 weeks ago.), Decreased Appetite, Nausea (Mild nausea this morning. He has had not eaten yet..) : Reports: Frequency, Other (Nocturia x2. Known BPH.) Musculoskeletal: Reports: Back Pain (And problems with low back pain rating down the right buttock posterior hip), Leg Pain, Joint Pain (Healing up from her right hip replacement.). Denies: Foot Pain (Leg pain) Skin: Reports: No Symptoms Neurological: Reports: No Symptoms Psychiatric: Reports: No Symptoms Hematologic/Lymphatic: Reports: No Symptoms Immunologic: Reports: No Symptoms ED EXAM, GENERAL - Physical Exam Exam: See Below Exam Limited By: No Limitations General Appearance: Alert, WD/WN, No Apparent Distress, Other (Temperature is 36.1. Heart rate 80 respiratory does 18 BP 139/79 pulse ox 97% on room air. Peers to be under the influence of pain medication as his eyes are fairly glassy.) Eye Exam: Bilateral Eye: Normal Inspection, PERRL Throat/Mouth: Normal Inspection, Normal Lips, Normal Oropharynx (Tongue is mildly dry and coated.), Other Head: Atraumatic, Normocephalic Neck: Normal Inspection, Supple, Non-Tender, Full Range of Motion, Other (No JVD.). No: Carotid Bruit, Lymphadenopathy (L), Lymphadenopathy (R) Respiratory/Chest: No Respiratory Distress, Lungs Clear, Normal Breath Sounds, No Accessory Muscle Use Cardiovascular: Normal Peripheral Pulses, Regular Rate, Rhythm, No Edema, No Gallop, No Murmur, No Rub Peripheral Pulses: 2+: Posterior Tibial (L), Posterior Tibial (R), Dorsalis Pedis (L), Dorsalis Pedis (R), 3+: Carotid (L), Carotid (R) GI/Abdominal: Normal Bowel Sounds, Soft, Non-Tender, No Organomegaly, No Abnormal Bruit, No Mass, Pelvis Stable, Other ( although this is subjective since his O2 sats are left inguinal hernia raphe scar.) Back Exam: Other (Examination of his back reveals no paraspinal muscle spasm. I cannot localize any pain to the any of the facet joints. Right hip wound appears to be healing satisfactory without any increased redness swelling or tenderness. He has a covered with a few bandages. Pain is mostly anterior to the hip wound. No rashes evident to suggest zoster infection.) Extremities: Other (Right hip wound appears to be healing satisfactorily.) Neurological: Alert, Oriented, CN II-XII Intact, Normal Cognition, Normal Gait Psychiatric: Normal Mood, Flat Affect (Near as boisterous as his normal personality is.) Skin Exam: Warm, Dry, Intact, Normal Color, No Rash EKG INTERPRETATION EKG Date: 08/25/19 Time: 09:06 Rhythm: NSR Rate (Beats/Min): 75 [place]: LAD-Left [place] Deviation (-19 degrees) P-Wave: Present QRS: Other (Early R wave transition consider right ventricular hypertrophy versus septal hypertrophy pattern. Q waves in leads III and aVF consider old inferior wall myocardial infarction. Tall R wave in lead I alone suggests possible mild left ventricular appear to be pattern) ST-T: Other (Minimal T wave flattening in aVL and aVF and lead III. Nonspecific findings) QT: Normal EKG Interpretation Comments: Borderline ECG no signs of ischemia. Course - Vital Signs Last Recorded V/S: Last Vital Signs Temp 36.1 C 08/25/19 08:52 Pulse 80 08/25/19 08:52 Resp 18 08/25/19 08:52 BP 139/79 08/25/19 08:52 Pulse Ox 97 08/25/19 08:52 - Orders/Labs/Meds Orders: Active Orders 24 hr Category Date Time Status EKG 12 Lead [EKG Documentation Completion] [RC] STAT Care 08/25/19 09:06 Active Hip Min 2V or 3V Rt [CR] Stat Exams 08/25/19 09:45 Taken CORONAVIRUS COVID-19 PCR PHL Stat Lab 08/25/19 09:26 Ordered GLYCOSYLATED HEMOGLOBIN,HGBA1C [CHEM] Stat Lab 08/25/19 10:59 Ordered Dextrose 5%-Lactated Ringers 1,000 ml Med 08/25/19 09:30 Active IV ASDIRECTED Medication Orders Dextrose/Lactated Ringer's (Dextrose 5%-Lactated Ringers) 1,000 mls @ 500 mls /hr IV ASDIRECTED ELISE Last Admin: 08/25/19 09:35 Dose: 500 mls/hr Documented by: OJ Labs: Laboratory Tests 08/25/19 08/25/19 08/25/19 Range/Units 09:25 09:29 09:29 WBC 10.34 H (4.23-9.07) K/mm3 RBC 4.46 L (4.63-6.08) M/mm3 Hgb 12.8 L (13.7-17.5) gm/dl Hct 40.6 (40.1-51.0) % MCV 91.0 (79.0-92.2) fl MCH 28.7 (25.7-32.2) pg MCHC 31.5 L (32.2-35.5) g/dl RDW Std Deviation 50.7 H (35.1-43.9) fL Plt Count 230 (163-337) K/mm3 MPV 10.6 (9.4-12.3) fl Neut % (Auto) 77.9 H (34.0-67.9) % Lymph % (Auto) 12.0 L (21.8-53.1) % [place] % (Auto) 7.4 (5.3-12.2) % Eos % (Auto) 2.1 (0.8-7.0) Baso % (Auto) 0.3 (0.1-1.2) % Neut # (Auto) 8.05 H (1.78-5.38) K/mm3 Lymph # (Auto) 1.24 L (1.32-3.57) K/mm3 [place] # (Auto) 0.77 (0.30-0.82) K/mm3 Eos # (Auto) 0.22 (0.04-0.54) K/mm3 Baso # (Auto) 0.03 (0.01-0.08) K/mm3 Sodium 139 (136-145) mEq/L Potassium 3.7 (3.5-5.1) mEq/L Chloride 102 (98-107) mEq/L Carbon Dioxide 26 (21-32) mEq/L Anion Gap 14.7 (5-15) BUN 21 H (7-18) mg/dL Creatinine 1.2 (0.7-1.3) mg/dL Est Cr Clr Drug Dosing 53.55 mL/min Estimated GFR (MDRD) 60 (>60) mL/min BUN/Creatinine Ratio 17.5 (14-18) Glucose 144 H (80-115) mg/dL Calcium 8.9 (8.5-10.1) mg/dL Magnesium 2.0 (1.8-2.4) mg/dl Total Bilirubin 0.7 (0.2-1.0) mg/dL AST 24 (15-37) U/L ALT 34 (16-63) U/L Alkaline Phosphatase 103 (46-116) U/L Troponin I < 0.017 (0.00-0.056) ng/mL C-Reactive Protein 2.5 H* (<1.0) mg/dL NT-Pro-B Natriuret Pep (0-125) pg/mL Total Protein 7.3 (6.4-8.2) g/dl Albumin 3.6 (3.4-5.0) g/dl Globulin 3.7 gm/dL Albumin/Globulin Ratio 1.0 (1-2) Urine Color Yellow (Yellow) Urine Appearance Clear (Clear) Urine pH 5.5 (5.0-8.0) Ur Specific [place] > or = 1.030 (1.005-1.030) Urine Protein Negative (Negative) Urine Glucose (UA) Negative (Negative) Urine Ketones Negative (Negative) Urine Occult Blood Negative (Negative) Urine Nitrite Negative (Negative) Urine Bilirubin Negative (Negative) Urine Urobilinogen 0.2 (0.2-1.0) Ur Leukocyte Esterase Negative (Negative) Urine RBC 0-5 (0-5) /hpf Urine WBC 0-5 (0-5) /hpf Ur Squamous Epith Cells 0-5 (0-5) /hpf Urine Bacteria Moderate H (FEW) /hpf Urine Mucus Moderate H (FEW) /hpf 08/25/19 Range/Units 09:29 WBC (4.23-9.07) K/mm3 RBC (4.63-6.08) M/mm3 Hgb (13.7-17.5) gm/dl Hct (40.1-51.0) % MCV (79.0-92.2) fl MCH (25.7-32.2) pg MCHC (32.2-35.5) g/dl RDW Std Deviation (35.1-43.9) fL Plt Count (163-337) K/mm3 MPV (9.4-12.3) fl Neut % (Auto) (34.0-67.9) % Lymph % (Auto) (21.8-53.1) % [place] % (Auto) (5.3-12.2) % Eos % (Auto) (0.8-7.0) Baso % (Auto) (0.1-1.2) % Neut # (Auto) (1.78-5.38) K/mm3 Lymph # (Auto) (1.32-3.57) K/mm3 [place] # (Auto) (0.30-0.82) K/mm3 Eos # (Auto) (0.04-0.54) K/mm3 Baso # (Auto) (0.01-0.08) K/mm3 Sodium (136-145) mEq/L Potassium (3.5-5.1) mEq/L Chloride (98-107) mEq/L Carbon Dioxide (21-32) mEq/L Anion Gap (5-15) BUN (7-18) mg/dL Creatinine (0.7-1.3) mg/dL Est Cr Clr Drug Dosing mL/min Estimated GFR (MDRD) (>60) mL/min BUN/Creatinine Ratio (14-18) Glucose (80-115) mg/dL Calcium (8.5-10.1) mg/dL Magnesium (1.8-2.4) mg/dl Total Bilirubin (0.2-1.0) mg/dL AST (15-37) U/L ALT (16-63) U/L Alkaline Phosphatase (46-116) U/L Troponin I (0.00-0.056) ng/mL C-Reactive Protein (<1.0) mg/dL NT-Pro-B Natriuret Pep 47 (0-125) pg/mL Total Protein (6.4-8.2) g/dl Albumin (3.4-5.0) g/dl Globulin gm/dL Albumin/Globulin Ratio (1-2) Urine Color (Yellow) Urine Appearance (Clear) Urine pH (5.0-8.0) Ur Specific [place] (1.005-1.030) Urine Protein (Negative) Urine Glucose (UA) (Negative) Urine Ketones (Negative) Urine Occult Blood (Negative) Urine Nitrite (Negative) Urine Bilirubin (Negative) Urine Urobilinogen (0.2-1.0) Ur Leukocyte Esterase (Negative) Urine RBC (0-5) /hpf Urine WBC (0-5) /hpf Ur Squamous Epith Cells (0-5) /hpf Urine Bacteria (FEW) /hpf Urine Mucus (FEW) /hpf Meds: Medications Generic Name Dose Route Start Last Admin Trade Name Freq PRN Reason Stop Dose Admin Dextrose/Lactated Ringer's 1,000 mls @ 500 mls/hr 08/25/19 09:30 08/25/19 09:35 Dextrose 5%-Lactated Ringers IV 500 mls/hr ASDIRECTED ELISE Administration Discontinued Medications Generic Name Dose Route Start Last Admin Trade Name Freq PRN Reason Stop Dose Admin Metoclopramide HCl 7.5 mg 08/25/19 09:23 08/25/19 09:32 Reglan IVPUSH 08/25/19 09:24 7.5 mg ONETIME ONE Administration - Radiology Interpretation Free Text/Narrative:: 68-year-old male attends the ED with generally not feeling well. Primary complaint is diffuse low back pain rating down the right buttock posterior to the posterior aspect of his thigh to just below the right knee. He has had previous problems with disc herniation with surgery treatment to 20 years ago. Could not elicit any low back pain on examination or facet joint tenderness. He has had right hip replacement as of 5 weeks ago. He is off Xarelto as of last night. [place] feeling mildly short of breath. O2 sats over 97% on room air. Plan he is about mildly volume depleted. Mildly nauseated. A little tenderness in the right sacroiliac joint. Most of his pain is anterior to his right hip wound. IV will be D5LR at 500 mils per hour. Given Reglan 7.5 mg IV as he took to 100 mg tablets of tramadol this morning which will not play well with Zofran. He will have a chest x-ray and lumbar spine CT exam. We will also have his right hip x-ray x3 view. He has an appointment to see Dr. Johnson or his PA this afternoon. - Re-Assessments/Exams Free Text/Narrative Re-Assessment/Exam: 08/25/19 10:39 White count is mildly elevated at 10.34. There is 78% neutro phils. Hemoglobin is 12.8 with hematocrit of 40.6. Platelet counts 230,000. Serum sodium is 139 with a potassium of 3.7. Chloride 102 with a bicarb of 26. Anion gap is 14.7. BUN is 21 with a creatinine of 1.2. Glucose is 144. Calcium 8.9 magnesium is 2.0. Liver function is normal. Troponin I is less than 0.017. C-reactive protein is mildly elevated at 2.5. Total protein 7.3 with an albumin fraction of 3.6. The urinalysis shows negative leukocyte esterase and negative nitrates. It does however show moderate bacteria and moderate mucus. COVID screen will be a send out and will be available tomorrow. 2 view chest x-ray reveals heart size and mediastinum to be normal. Lungs are clear with no acute parenchymal changes. Base of the pelvis reveal both hips have been replaced with total hip replacements. I do not see any abnormalities of the prostheses on the right side or left side. No lytic lesions identified within the pelvis. 08/25/19 10:39 CT of the lumbar spine reveals no imaging to compare to. At the T12-L1 level there is mild disc space narrowing. Posterior disc is preserved. No central canal stenosis or neuroforaminal stenosis is seen. At the L1-2 level posterior disc space narrowing is seen. Posterior disc is preserved. No central canal stenosis or neuroforaminal stenosis is seen. Mild degenerative apophyseal changes are appreciated. At the L2-3 level posterior disc is slightly narrowed. Very minimal circumferential disc bulge is seen. Posterior disc is mostly planar margin. No central canal stenosis or neuroforaminal stenosis is seen. Moderate degenerative apophyseal change is appreciated. At the L3-L4 level posterior disc narrowing is noted. Mild circumferential disc bulge noted. Moderate degenerative apophyseal changes seen. No central canal stenosis is seen neuro foramina appear patent where the nerve roots exit. At the L4-L5 level minimal spondylolisthesis by several millimeters is seen due to severe degenerative apophyseal change. Circumferential disc bulge is noted. Thickening of the ligamentum flavum is seen. Findings cause minimal central canal stenosis. The neural foramen appear to be patent where the nerve roots exit. At the L5-S1 level fairly severe disc space narrowing is noted with near vacuum disc phenomena. Posterior osteophyte spurring is noted. Several bilateral neuroforaminal stenosis is seen causing compromise upon the exiting L5 nerve roots on both sides. Prior medial laminectomy appears to be present on the left side moderate degenerative apophyseal changes noted. 08/25/19 10:57 advised the patient and his of the findings. Sugars a bit high and he may have a mild type 2 diabetes. I will older order a glycosylated protein to double check this. Did screen will be a send out. In the meantime I am going to place the patient on prednisone 20 mg twice daily for 5 days and then once daily in the morning for another 5 days to reduce pain and inflammation of nerve root on the right side. Percocet tabs 5/325 mg strength 1 or 2 every 4-6 hours necessary for pain relief x24 tablets. Has an appointment to follow-up with Dr. Johnson in clinic this afternoon. He is also receiving physical therapy and he will hopefully have some back exercise programs instituted as well. Departure - Departure Time of Disposition: 10:59 Disposition: Home, Self-Care 01 Condition: Fair Clinical Impression: Lumbosacral radiculopathy due to degenerative joint disease of spine, Spinal stenosis of lumbar region with radiculopathy - Discharge Information *PRESCRIPTION DRUG MONITORING PROGRAM REVIEWED*: Not Applicable *COPY OF PRESCRIPTION DRUG MONITORING REPORT IN PATIENT BENIGNO: Not Applicable Prescriptions: oxyCODONE HCl/Acetaminophen [Percocet 5-325 mg Tablet] 1 - 2 each PO Q4H PRN #24 tablet PRN Reason: pain relief. predniSONE [Prednisone] 20 mg PO BID #15 tablet Instructions: Radicular Pain Referrals: Darion Morales MD [Primary Care Provider] - Forms: ED Department Discharge Additional Instructions: Evaluation in the emergency room this morning in regards to just generally not feeling well. Feeling somewhat short of breath ,fatigued, nauseated etc. Increased low back pain with radiculopathy down the right posterior buttock in the L5 nerve root distribution. Lab work did not reveal any significant abnormalities other than slightly elevated blood sugar at 144. A glycosylated protein was ordered and this should hopefully rule out or rule in mild type 2 diabetes. This x-ray was within normal limits showing no abnormalities or accumulation of fluid. The heart checked out completely normally. X-rays of both hips were obtained and show no abnormalities of the prostheses. CT of the lumbar spine reveals advanced degenerative changes at the lowest level called the L5-S1 level. The disc is gone at this level. This causes narrowing of the neural foramina where the nerves exit from the spinal cord and travel down the leg. I cannot say that the left is any worse than the right. Currently having right-sided sciatica. Suggest treatment with prednisone 20 mg twice daily with breakfast and supper for 5 days and then once in the morning only for another 5 days to reduce pain and inflammation. Percocet 5/325 mg tabs 1 or 2 every 4-6 hours necessary for pain relief. Do not take the tramadol at the same time. Of note pain pills like to cause constipation. If you need them for more than a couple of days then you should take MiraLAX powder 17 g or 1 scoop daily to prevent constipation from occurring. Follow-up with Dr. Johnson as planned today in regards to your right hip recent surgery. Screen has been done in the ED and the results should be available tomorrow afternoon. Sepsis Event Note (ED) - Evaluation Sepsis Screening Result: No Definite Risk - Focused Exam Vital Signs: Vital Signs Temp Pulse Resp BP Pulse Ox 08/25/19 08:52 36.1 C 80 18 139/79 97 - My Orders Last 24 Hours: My Active Orders 08/25/19 09:06 EKG 12 Lead [EKG Documentation Completion] [RC] STAT 08/25/19 09:26 CORONAVIRUS COVID-19 PCR PHL Stat 08/25/19 09:30 Dextrose 5%-Lactated Ringers 1,000 ml IV ASDIRECTED 08/25/19 09:45 Hip Min 2V or 3V Rt [CR] Stat 08/25/19 10:59 GLYCOSYLATED HEMOGLOBIN,HGBA1C [CHEM] Stat - Assessment/Plan Last 24 Hours: My Active Orders 08/25/19 09:06 EKG 12 Lead [EKG Documentation Completion] [RC] STAT 08/25/19 09:26 CORONAVIRUS COVID-19 PCR PHL Stat 08/25/19 09:30 Dextrose 5%-Lactated Ringers 1,000 ml IV ASDIRECTED 08/25/19 09:45 Hip Min 2V or 3V Rt [CR] Stat 08/25/19 10:59 GLYCOSYLATED HEMOGLOBIN,HGBA1C [CHEM] Stat
--- NOTE | 2019-08-25 10:14 | CT ---
CT lumbar spine Technique: Multiple axial sections were obtained from the top of T12 inferiorly through the mid sacrum. Reconstructed coronal and sagittal images were obtained. Comparison: No prior lumbar spine imaging is available. Findings: T12-L1: Mild disc space narrowing is seen. Posterior disc is preserved. No central canal stenosis or neural foraminal stenosis is seen. L1-2: Posterior disc space narrowing is seen. Posterior disc is preserved. No central canal stenosis or neural foraminal stenosis is seen. Mild degenerative apophyseal change is seen. L2-3: Posterior disc is slightly narrowed. Very minimal circumferential disc bulge is seen. Posterior disc has a mostly planar margin. No central canal stenosis or neural foraminal stenosis is seen. Moderate degenerative apophyseal change is seen. L3-L4: Posterior disc space narrowing is noted. Mild circumferential disc bulge is noted. Moderate degenerative apophyseal change is seen. No central canal stenosis is seen. Neural foramina appear patent where the nerve roots exit. L4-L5: Minimal spondylolisthesis by several millimeters is seen due to severe degenerative apophyseal change. Circumferential disc bulge is noted. Thickening of ligamentum flavum is seen. Findings cause minimal central canal stenosis. Neural foramina appear to be patent where the nerve roots exit. L5-S1: Fairly severe disc space narrowing is noted with vacuum disc phenomena. Posterior spurring is noted. Severe bilateral neural foraminal stenosis is seen causing compromise upon the exiting L5 nerve roots on both sides. Prior minilaminectomy appears to be present on the left side. Moderate degenerative apophyseal change is noted. No fracture is identified. Impression: 1. Degenerative change as described above. 2. Most prominent finding is bilateral neural foraminal stenosis at L5-S1 causing compromise upon both exiting L5 nerve roots. 3. Nothing acute is seen. Diagnostic code #3 This report was dictated in MDT
--- NOTE | 2019-08-25 10:15 | CR ---
Chest: Frontal view of the chest was obtained. Comparison: Prior chest x-ray of 07/02/19. Findings: Heart size and mediastinum are normal. Lungs are clear with no acute parenchymal change. Bony structures appear within normal limits. Impression: 1. Nothing acute is seen on 2 view chest x-ray. Diagnostic code #1 This report was dictated in MDT
[2019-08-25 12:04] LABS: HEMOGLOBIN A1C 6.1 % (4.50-6.20)
--- NOTE | 2019-08-25 19:09 | CR ---
Pelvis and right hip: AP view of the pelvis was obtained as well as AP and crosstable lateral views of the right hip. Findings: Bilateral hip prosthesis are seen. Components are aligned. Sacroiliac joints are normal. No fracture or other bony abnormality is appreciated. Impression: 1. Bilateral hip prosthesis. 2. AP pelvis and two-view hip exam is otherwise unremarkable. Diagnostic code #1 This report was dictated in MDT
== END 2019-08-25 11:15 | disposition home or self-care (01) ==
LOC: JD.ED 08:41
DX: M48.061 Spinal stenosis, lumbar region without neurogenic claudication (principal); M47.27 Other spondylosis with radiculopathy, lumbosacral region; R11.2 Nausea with vomiting, unspecified; I10 Essential (primary) hypertension; E66.9 Obesity, unspecified; Z68.36 Body mass index [BMI] 36.0-36.9, adult; Z79.899 Other long term (current) drug therapy
CPT/HCPCS: 36415; 71045; 72131; 73502; 80053; 81001; 83036; 83735; 83880; 84484; 85025; 86140; 93005; 96361; 96374; 99285; J2765; J7121; U0002

== ENCOUNTER 2021-04-10 07:37 | Inpatient (IN) | payer MEDICARE, BC ==
[2021-04-10] MEDS ORDERED: Sodium Chloride 0.9% 10 ML Syringe FLUSH PRN (07:59)
[2021-04-10] MEDS ORDERED: Ondansetron 4 MG/2 ML SDV IVPUSH ONE (07:59)
[2021-04-10] MEDS ORDERED: Sodium Chloride 0.9% 1,000 ML IV SCH (08:00)
[2021-04-10 09:00] LABS: CORONAVIRUS COVID-19 NAA NEGATIVE (NEGATIVE)
[2021-04-10] MEDS ORDERED: cefTRIAXone 2 GM in Sodium Chloride 0.9% 100 ML IV ONE (09:17)
[2021-04-10] MEDS ORDERED: Docusate Sodium 100 MG Cap PO PRN (10:07)
[2021-04-10] MEDS ORDERED: oxyCODONE 5 MG Tab PO PRN (10:07)
[2021-04-10] MEDS ORDERED: Temazepam 7.5 MG Cap PO PRN (10:07)
[2021-04-10] MEDS ORDERED: HYDROmorphone 0.5 MG/0.5 ML Syringe IVPUSH PRN (10:07)
[2021-04-10] MEDS ORDERED: Ondansetron 4 MG/2 ML SDV IV PRN (10:07)
[2021-04-10] MEDS ORDERED: Acetaminophen 325 MG Tab PO PRN (10:07)
[2021-04-10] MEDS ORDERED: HYDROmorphone 0.5 MG/0.5 ML Syringe IVPUSH ONE (11:04)
[2021-04-10] MEDS: cefTRIAXone 2 GM in Sodium Chloride 0.9% 100 ML IV SCH (12:13)
[2021-04-10] MEDS: Sodium Chloride 0.9% 1,000 ML IV SCH (14:36)
[2021-04-10] MEDS ORDERED: Tamsulosin 0.4 MG Cap.ER PO ONE (18:40)
[2021-04-11] MEDS: Sodium Chloride 0.9% 1,000 ML IV SCH ×2 (01:05→09:59)
[2021-04-11] MEDS ORDERED: Potassium Chloride 20 MEQ Tab.ER PO ONE (08:18)
[2021-04-11] MEDS ORDERED: [UNRECOGNIZED DRUG - OTHER] PO SCH (09:00)
[2021-04-11] MEDS ORDERED: K2 PO SCH (09:00)
[2021-04-11] MEDS: Cholecalciferol (Vitamin D3) 5,000 UNIT Tab PO SCH (09:45)
[2021-04-11] MEDS: Enoxaparin 40 MG/0.4 ML Syringe SUBCUT SCH (09:45)
[2021-04-11] MEDS: Multivitamins with Minerals/Folic Acid/Lutein/Zeaxanth Tab PO SCH (09:45)
[2021-04-11] MEDS: Metoprolol Succinate 25 MG Tab.ER PO SCH (09:46)
[2021-04-11] MEDS: Tamsulosin 0.4 MG Cap.ER PO SCH (09:46)
[2021-04-11] MEDS: Losartan 100 MG Tab PO SCH (09:46)
[2021-04-11] MEDS: Hydrochlorothiazide 25 MG Tab PO SCH (09:46)
[2021-04-11] MEDS: cefTRIAXone 2 GM in Sodium Chloride 0.9% 100 ML IV SCH (09:47)
[2021-04-11] MEDS: Phenazopyridine 95 MG Tab PO SCH ×2 (13:44→19:14)
[2021-04-12] MEDS: Tamsulosin 0.4 MG Cap.ER PO SCH (09:10)
[2021-04-12] MEDS: Hydrochlorothiazide 25 MG Tab PO SCH (09:11)
[2021-04-12] MEDS: Multivitamins with Minerals/Folic Acid/Lutein/Zeaxanth Tab PO SCH (09:11)
[2021-04-12] MEDS: Metoprolol Succinate 25 MG Tab.ER PO SCH (09:11)
[2021-04-12] MEDS: Losartan 100 MG Tab PO SCH (09:12)
[2021-04-12] MEDS: Cholecalciferol (Vitamin D3) 5,000 UNIT Tab PO SCH (09:12)
[2021-04-12] MEDS: Phenazopyridine 95 MG Tab PO SCH (09:12)
[2021-04-12] MEDS: Enoxaparin 40 MG/0.4 ML Syringe SUBCUT SCH (10:17)
== END 2021-04-12 09:30 | disposition home or self-care (01) | DRG 698 ==
LOC: JD.ED 07:37 → JD.ICU 10:07
PROVIDERS: ADMIT Internal Medicine; ATTEND Internal Medicine
DX: T83.510A Infection and inflammatory reaction due to cystostomy catheter, initial encounter (principal); A41.9 Sepsis, unspecified organism; N30.00 Acute cystitis without hematuria; K21.9 Gastro-esophageal reflux disease without esophagitis; I10 Essential (primary) hypertension; M54.9 Dorsalgia, unspecified; G89.29 Other chronic pain; E66.9 Obesity, unspecified; C61 Malignant neoplasm of prostate; Z96.649 Presence of unspecified artificial hip joint; R33.9 Retention of urine, unspecified; Z20.822 Contact with and (suspected) exposure to COVID-19; Z68.38 Body mass index [BMI] 38.0-38.9, adult; N28.9 Disorder of kidney and ureter, unspecified; H91.90 Unspecified hearing loss, unspecified ear; G47.30 Sleep apnea, unspecified; M19.90 Unspecified osteoarthritis, unspecified site; Z85.46 Personal history of malignant neoplasm of prostate; Z86.16 Personal history of COVID-19; Z79.899 Other long term (current) drug therapy
CPT/HCPCS: 0240U; 36415; 71045; 80053; 81001; 83605; 83690; 83735; 85025; 86140; 87040; 87086; 96365; 96375; 99285; 99222; 99232; 99239; A9270-GY; J0696; J1170; J1650; J2405; J7030

== ENCOUNTER 2021-12-28 15:38 | Emergency (ER) | payer MEDICARE, BC ==
[2021-12-28] MEDS ORDERED: Ketorolac 30 MG/ML SDV IM ONE (17:15)
== END 2021-12-28 19:01 | disposition home or self-care (01) ==
LOC: JD.ED 15:38
DX: S86.912A Strain of unspecified muscle(s) and tendon(s) at lower leg level, left leg, initial encounter (principal); I10 Essential (primary) hypertension; E66.9 Obesity, unspecified; Z68.37 Body mass index [BMI] 37.0-37.9, adult; Z79.899 Other long term (current) drug therapy; Z86.16 Personal history of COVID-19; X50.1XXA Overexertion from prolonged static or awkward postures, initial encounter
CPT/HCPCS: 73562; 96372; 99283; J1885